=== PATIENT | male | born 1960 | race African-American/Black ===

== ENCOUNTER 2019-02-25 07:11 | Emergency (ER) | payer OTHER ==
[2019-02-25] MEDS ORDERED: HYDROMORPHONE HCL 1 MG/ML INJ ONE (08:05)
--- NOTE | 2019-02-25 08:21 | ER ---
Nurse's Notes [facility] Name: Donato Pascual Age: 58 yrs Sex: Male : 1960 Arrival Date: 02/25/2019 Time: 07:14 Bed 6 Private MD: Raphael Chew E Diagnosis: Unilateral inguinal hernia, without obstruction or gangrene Presentation: 02/25 07:18 Presenting complaint: Patient states: "my hernia came out, I was bending over to put my aa5 shoes on when it came out". Pt c/o pain to hernia. 07:18 Acuity: ROSHAN 3 aa5 07:18 Transition of care: patient was not received from another setting of care. Onset of aa5 symptoms was February 25, 2019. Risk Assessment: Do you want to hurt yourself or someone else? Patient reports no desire to harm self or others. Initial Sepsis Screen: Does the patient meet any 2 criteria? No. Patient's initial sepsis screen is negative. Does the patient have a suspected source of infection? No. Patient's initial sepsis screen is negative. Care prior to arrival: None. 07:18 Method Of Arrival: Ambulatory aa5 Historical: - Allergies: 07:27 NKA; tw2 - Home Meds: 07:27 Albuterol Inhl [Active]; tw2 - PMHx: 07:27 Asthma; enlarged prostate; tw2 - PSHx: 07:27 Hernia repair; tw2 - Immunization history:: Adult Immunizations. - Social history:: Smoking status: . - Ebola Screening: : Patient denies travel to an Ebola-affected area in the 21 days before illness onset. Screenin:27 Abuse screen: Denies threats or abuse. Nutritional screening: No deficits noted. tw2 Tuberculosis screening: No symptoms or risk factors identified. Fall Risk None identified. Assessment: 08:04 General: Appears in no apparent distress. Behavior is calm, cooperative, appropriate tw2 for age. Pain: Complains of pain in abdomen. Neuro: Level of Consciousness is awake, alert, obeys commands, Oriented to person, place, time, situation. Cardiovascular: Heart tones S1 S2 Patient's skin is warm and dry. Respiratory: Airway is patent Respiratory pattern is regular, symmetrical. GI: Reports lower abdominal pain, upper abdominal pain. : No signs and/or symptoms were reported regarding the genitourinary system. EENT: No signs and/or symptoms were reported regarding the EENT system. Derm: No signs and/or symptoms reported regarding the dermatologic system. Musculoskeletal: Range of motion: intact in all extremities. Vital Signs: 07:18 BP 115 / 75; Pulse 67; Resp 16 S; Temp 97.6(O); Pulse Ox 100% on R/A; Weight 90.72 kg aa5 (R); Height 6 ft. 0 in. (182.88 cm) (R); Pain 9/10; 08:27 BP 109 / 70; Pulse 62; Resp 17; Pulse Ox 100% ; Pain 6/10; tw2 07:18 Body Mass Index 27.12 (90.72 kg, 182.88 cm) aa5 ED Course: 07:14 Patient arrived in ED. rg4 07:15 Raphael Chew MD is Private Physician. rg4 07:22 Matthew Meng MD is Attending Physician. gs 07:22 Arm band placed on Patient placed in an exam room, on a stretcher. aa5 07:22 Bed in low position. Call light in reach. tw2 07:26 Meli Monsivais, LU is Primary Nurse. tw2 07:30 Triage completed. aa5 08:19 Salty Lyles MD is Referral Physician. gs 08:26 No provider procedures requiring assistance completed. Patient did not have IV access tw2 during this emergency room visit. Administered Medications: 07:52 Drug: Dilaudid 1 mg Route: IM; Site: right deltoid; tw2 08:27 Follow up: Response: No adverse reaction; Pain is decreased tw2 Outcome: 08:19 Discharge ordered by . gs 08:26 Discharged to home via wheelchair, with significant other. tw2 08:26 Condition: stable 08:26 Discharge instructions given to patient, significant other, Instructed on discharge instructions, follow up and referral plans. no drinking with medication, no driving heavy equipment, medication usage, Demonstrated understanding of instructions, follow-up care, medications, Prescriptions given X 1. 08:27 Patient left the ED. tw2 Signatures: Ruthann Breaux RN RN aa5 Meli Monsivais RN RN tw2 Sridevi Gan 4 Matthew Meng MD MD Corrections: (The following items were deleted from the chart) 08:03 08:02 BP 116 / 82; Pulse 109bpm; Resp 17bpm; Pulse Ox 93% RA; tw2 tw2
--- NOTE | 2019-02-25 08:21 | EDPHYS ---
Physician Documentation [facility] Name: Donato Pascual Age: 58 yrs Sex: Male : 1960 Arrival Date: 02/25/2019 Time: 07:14 Bed 6 Private MD: Raphael Chew E ED Physician Matthew Meng HPI: 02/25 08:14 This 58 yrs old Black Male presents to ER via Ambulatory with complaints of Hernia. gs 08:14 Onset: The symptoms/episode began/occurred this morning. Modifying factors: The gs symptoms are alleviated by nothing. Associated signs and symptoms: Pertinent negatives: abdominal pain, nausea, vomiting. Severity of symptoms: At their worst the symptoms were moderate, in the emergency department the symptoms are unchanged. The patient has experienced a previous episode. The patient has not recently seen a physician. Historical: - Allergies: 07:27 NKA; tw2 - Home Meds: 07:27 Albuterol Inhl [Active]; tw2 - PMHx: 07:27 Asthma; enlarged prostate; tw2 - PSHx: 07:27 Hernia repair; tw2 - Immunization history:: Adult Immunizations. - Social history:: Smoking status: . - Ebola Screening: : Patient denies travel to an Ebola-affected area in the 21 days before illness onset. ROS: 08:14 All other systems are negative. gs Exam: 08:14 Head/Face: Normocephalic, atraumatic. Cardiovascular: Regular rate and rhythm with a gs normal S1 and S2. No gallops, murmurs, or rubs. Normal PMI, no JVD. No pulse deficits. Respiratory: Lungs have equal breath sounds bilaterally, clear to auscultation and percussion. No rales, rhonchi or wheezes noted. No increased work of breathing, no retractions or nasal flaring. Abdomen/GI: Soft, non-tender, with normal bowel sounds. No distension or tympany. No guarding or rebound. No evidence of tenderness throughout. Back: No spinal tenderness. No costovertebral tenderness. Full range of motion. Skin: Warm, dry with normal turgor. Normal color with no rashes, no lesions, and no evidence of cellulitis. MS/ Extremity: Pulses equal, no cyanosis. Neurovascular intact. Full, normal range of motion. Neuro: Awake and alert, GCS 15, oriented to person, place, time, and situation. Cranial nerves II-XII grossly intact. Motor strength 5/5 in all extremities. Sensory grossly intact. Cerebellar exam normal. Normal gait. 08:14 Constitutional: The patient appears alert, awake. 08:14 Constitutional: The patient appears uncomfortable. 08:14 Abdomen/GI: Hernia: noted in the left inguinal area, incarceration, is not appreciated, tenderness, that is mild, able to reduce. Vital Signs: 07:18 BP 115 / 75; Pulse 67; Resp 16 S; Temp 97.6(O); Pulse Ox 100% on R/A; Weight 90.72 kg aa5 (R); Height 6 ft. 0 in. (182.88 cm) (R); Pain 9/10; 08:27 BP 109 / 70; Pulse 62; Resp 17; Pulse Ox 100% ; Pain 6/10; tw2 07:18 Body Mass Index 27.12 (90.72 kg, 182.88 cm) aa5 MDM: 07:46 Patient medically screened. 08:14 Data reviewed: vital signs, nurses notes. Counseling: I had a detailed discussion with the patient and/or guardian regarding: the historical points, exam findings, and any diagnostic results supporting the discharge/admit diagnosis, the need for outpatient follow up. Response to treatment: the patient's symptoms have markedly improved after treatment, the patient's condition has returned to base line. Physician consultation: regarding patient's condition, and will see patient. Administered Medications: 07:52 Drug: Dilaudid 1 mg Route: IM; Site: right deltoid; tw2 08:27 Follow up: Response: No adverse reaction; Pain is decreased tw2 Disposition: 02/25/19 08:19 Discharged to Home. Impression: Unilateral inguinal hernia, without obstruction or gangrene. - Condition is Stable. - Discharge Instructions: Hernia, Adult. - Prescriptions for Tylenol- Codeine #4 300-60 mg Oral Tablet - take 1 tablet by ORAL route every 12 hours As needed; 8 tablet. - Work release form, Medication Reconciliation Form, Thank You Letter, Antibiotic Education, Prescription Opioid Use form. - Follow up: Salty Lyles MD; When: 2 - 3 days; Reason: Re-evaluation by your physician. Signatures: Meli Monsivais RN RN tw2 Matthew Meng MD MD gs Corrections: (The following items were deleted from the chart) 08:27 08:19 02/25/2019 08:19 Discharged to Home. Impression: Unilateral inguinal hernia, tw2 without obstruction or gangrene. Condition is Stable. Forms are Work release form, Medication Reconciliation Form, Thank You Letter, Antibiotic Education, Prescription Opioid Use. Follow up: Salty Lyles; When: 2 - 3 days; Reason: Re-evaluation by your physician. gs
[2019-02-25 08:34] VITALS: TEMP 97.6; O2SAT 100
[2019-02-25 08:36] VITALS: BP 109/70
== END 2019-02-25 08:27 | disposition home or self-care (01) ==
LOC: ER 07:11
DX: K40.90 Unilateral inguinal hernia, without obstruction or gangrene, not specified as recurrent (principal); J45.909 Unspecified asthma, uncomplicated
CPT/HCPCS: 96372; 99283; J1170

== ENCOUNTER 2019-03-23 10:36 | Inpatient (IN) | payer OTHER ==
--- NOTE | 2019-03-23 11:14 | ER ---
Nurse's Notes [facility] Name: Donato Pascual Age: 58 yrs Sex: Male : 1960 Arrival Date: 03/23/2019 Time: 10:38 Bed 8 Private MD: Diagnosis: Inguinal hernia-Left Presentation: 03/23 10:44 Presenting complaint: Recently seen in ED for inguinal hernia, reports testicular hb swelling, worsening pain that radiates to lower abdomen, nausea, and difficulty urinating. Transition of care: patient was not received from another setting of care. Onset of symptoms was March 23, 2019. Risk Assessment: Do you want to hurt yourself or someone else? Patient reports no desire to harm self or others. Initial Sepsis Screen: Does the patient meet any 2 criteria? No. Patient's initial sepsis screen is negative. Does the patient have a suspected source of infection? No. Patient's initial sepsis screen is negative. Care prior to arrival: None. 10:44 Method Of Arrival: Ambulatory hb 10:44 Acuity: ROSHAN 3 hb Historical: - Allergies: 10:46 NKA; hb - Home Meds: 10:46 Albuterol Inhl [Active]; hb - PMHx: 10:46 Asthma; enlarged prostate; hb - PSHx: 10:46 Hernia repair; hb - Immunization history:: Adult Immunizations up to date. - Social history:: Smoking status: Patient/guardian denies using tobacco. - Ebola Screening: : No symptoms or risks identified at this time. Screenin:10 Abuse screen: Denies threats or abuse. Denies injuries from another. Nutritional sg screening: No deficits noted. Tuberculosis screening: No symptoms or risk factors identified. Never had TB. Fall Risk None identified. Assessment: 11:00 General: Appears in no apparent distress. uncomfortable, slender, well groomed, well sg developed, well nourished, Behavior is calm, cooperative, appropriate for age. Pain: Complains of pain in perineum, left femoral area and left inguinal area Quality of pain is described as throbbing. Neuro: Level of Consciousness is awake, alert, obeys commands, Oriented to person, place, time, Accounting Technician are equal bilaterally Moves all extremities. Full function Speech is normal, Facial symmetry appears normal. Cardiovascular: Capillary refill is brisk in bilateral fingers Patient's skin is warm and dry. Chest pain is denied. Respiratory: Airway is patent Respiratory effort is even, unlabored, Respiratory pattern is regular, symmetrical. GI: Abdomen is round non-distended, protruding area from the left inguinal and left femoral area, pt reports is in inguinal hernia Abd is soft and non tender X 4 quads. : Genitalia appear normal. 12:58 Reassessment: Patient appears in no apparent distress at this time. Patient and/or sg family updated on plan of care and expected duration. Pain level reassessed. Patient is alert, oriented x 3, equal unlabored respirations, skin warm/dry/pink. awaiting a bed assignment at this time. 14:12 Reassessment: at bedside with pt at this time, awaiting admission orders, sg will continue to monitor. 14:52 Reassessment: Patient appears in no apparent distress at this time. Patient and/or sg family updated on plan of care and expected duration. Pain level reassessed. Patient is alert, oriented x 3, equal unlabored respirations, skin warm/dry/pink. pt transported to CT at this time, pt left stable condition via wheelchair. Vital Signs: 10:46 BP 123 / 76; Pulse 82; Resp 16; Temp 98.4; Pulse Ox 100% on R/A; Weight 90.72 kg; hb Height 6 ft. 1 in. (185.42 cm); Pain 8/10; 12:00 BP 140 / 88; Pulse 70; Resp 17 S; Pulse Ox 99% on R/A; sg 14:33 BP 143 / 90; Pulse 70; Resp 17; Temp 98.4; Pulse Ox 100% on R/A; sg 16:11 BP 138 / 88; Pulse 72; Resp 17; Temp 98.4; Pulse Ox 100% on R/A; sg 10:46 Body Mass Index 26.39 (90.72 kg, 185.42 cm) hb ED Course: 10:38 Patient arrived in ED. as 10:43 Oscar Welch MD is Attending Physician. kdr 10:46 Triage completed. hb 10:46 Arm band placed on. hb 11:12 Salty Lyles MD is Hospitalizing Provider. kdr 11:39 Kiet Mccormick RN is Primary Nurse. sg 11:39 Urine collected: clean catch specimen, clear, luis m colored. jb1 11:52 T\T\S collected, blood band applied to patient. Inserted saline lock: 20 gauge in right sg forearm, using aseptic technique. Blood collected. 12:20 CXR XRAY In Process Unspecified. EDMS 12:30 Initial lab(s) drawn, by me, sent to lab. sg 15:02 CT completed. Patient tolerated procedure well. Patient moved to CT. Patient moved back dc from CT. 15:02 Abdomen In Process Unspecified. EDMS Administered Medications: No medications were administered Outcome: 11:13 Decision to Hospitalize by Provider. kdr 16:31 Patient left the ED. sg Signatures: Dispatcher [employer] EDMS Bernardo Barker jb1 Kiet Mccormick RN RN Oscar Epps MD MD kdr Martinez, Amelia as Baxter, Heather, RN RN Troy Gates
--- NOTE | 2019-03-23 11:14 | EDPHYS ---
Physician Documentation [facility] Name: Donato Pascual Age: 58 yrs Sex: Male : 1960 Arrival Date: 03/23/2019 Time: 10:38 Bed 8 Private MD: ED Physician Oscar Welch HPI: 03/23 17:41 This 58 yrs old Black Male presents to ER via Ambulatory with complaints of Hernia Pain.kdr 17:41 The patient presents with abdominal pain in the left lower quadrant, Left groin pain - kdr hernia. Onset: The symptoms/episode began/occurred This is long standing problem for which he has been seeing Dr. Lyles for some time. The pain has been persistent for the past week. He had also seen Dr. Lyles recently for the same problem. He states he can't take it any longer and wants it fixed.. 17:48 The symptoms do not radiate. Associated signs and symptoms: none. The symptoms are kdr described as achy, burning, crampy, steady. Modifying factors: The symptoms are alleviated by nothing, the symptoms are aggravated by coughing, breathing deeply, touching the area, walking. Severity of pain: At its worst the pain was mild moderate in the emergency department the pain is unchanged. The patient has experienced similar episodes in the past, chronically. The patient has been recently seen by a physician:. Historical: - Allergies: 10:46 NKA; hb - Home Meds: 10:46 Albuterol Inhl [Active]; hb - PMHx: 10:46 Asthma; enlarged prostate; hb - PSHx: 10:46 Hernia repair; hb - Immunization history:: Adult Immunizations up to date. - Social history:: Smoking status: Patient/guardian denies using tobacco. - Ebola Screening: : No symptoms or risks identified at this time. ROS: 17:48 Constitutional: Negative for fever, chills, and weight loss, Eyes: Negative for injury, kdr pain, redness, and discharge, ENT: Negative for injury, pain, and discharge, Neck: Negative for injury, pain, and swelling, Cardiovascular: Negative for chest pain, palpitations, and edema, Respiratory: Negative for shortness of breath, cough, wheezing, and pleuritic chest pain, Abdomen/GI: Negative for abdominal pain, nausea, vomiting, diarrhea, and constipation, Back: Negative for injury and pain, MS/Extremity: Negative for injury and deformity, Skin: Negative for injury, rash, and discoloration, Neuro: Negative for headache, weakness, numbness, tingling, and seizure activity. Psych: Negative for depression, anxiety, suicide ideation, homicidal ideation, and hallucinations, Allergy/Immunology: Negative for hives, rash, and allergies, Endocrine: Negative for neck swelling, polydipsia, polyuria, polyphagia, and marked weight changes, Hematologic/Lymphatic: Negative for swollen nodes, abnormal bleeding, and unusual bruising. 17:48 : Positive for Left groin pain and swelling. Exam: 17:48 Constitutional: This is a well developed, well nourished patient who is awake, alert, kdr and in no acute distress. Head/Face: Normocephalic, atraumatic. Neck: Trachea midline, no thyromegaly or masses palpated, and no cervical lymphadenopathy. Supple, full range of motion without nuchal rigidity, or vertebral point tenderness. No Meningismus. Chest/axilla: Normal chest wall appearance and motion. Nontender with no deformity. No lesions are appreciated. Cardiovascular: Regular rate and rhythm with a normal S1 and S2. No gallops, murmurs, or rubs. Normal PMI, no JVD. No pulse deficits. Respiratory: Lungs have equal breath sounds bilaterally, clear to auscultation and percussion. No rales, rhonchi or wheezes noted. No increased work of breathing, no retractions or nasal flaring. Abdomen/GI: Soft, non-tender, with normal bowel sounds. No distension or tympany. No guarding or rebound. No evidence of tenderness throughout. Back: No spinal tenderness. No costovertebral tenderness. Full range of motion. Skin: Warm, dry with normal turgor. Normal color with no rashes, no lesions, and no evidence of cellulitis. MS/ Extremity: Pulses equal, no cyanosis. Neurovascular intact. Full, normal range of motion. Neuro: Awake and alert, GCS 15, oriented to person, place, time, and situation. Cranial nerves II-XII grossly intact. Motor strength 5/5 in all extremities. Sensory grossly intact. Cerebellar exam normal. Normal gait. Psych: Awake, alert, with orientation to person, place and time. Behavior, mood, and affect are within normal limits. 17:48 Abdomen/GI: Inspection: abdomen appears normal, There is a large swelling to the left groin, Bowel sounds: active, all quadrants, diminished, Palpation: moderate abdominal tenderness, Left groin especially with palpation and attempt to reduce the hernia even while in Trendelenburg . Vital Signs: 10:46 BP 123 / 76; Pulse 82; Resp 16; Temp 98.4; Pulse Ox 100% on R/A; Weight 90.72 kg; hb Height 6 ft. 1 in. (185.42 cm); Pain 8/10; 12:00 BP 140 / 88; Pulse 70; Resp 17 S; Pulse Ox 99% on R/A; sg 14:33 BP 143 / 90; Pulse 70; Resp 17; Temp 98.4; Pulse Ox 100% on R/A; sg 16:11 BP 138 / 88; Pulse 72; Resp 17; Temp 98.4; Pulse Ox 100% on R/A; sg 10:46 Body Mass Index 26.39 (90.72 kg, 185.42 cm) hb MDM: 11:13 Patient medically screened. kdr 17:48 Data reviewed: vital signs, nurses notes, lab test result(s). Counseling: I had a kdr detailed discussion with the patient and/or guardian regarding: the historical points, exam findings, and any diagnostic results supporting the discharge/admit diagnosis, lab results, the need for outpatient follow up. 03/23 11:40 Order name: Urine Dipstick--Ancillary (enter results); Complete Time: 12:09 bd 03/23 12:09 Order name: CBC with Diff kdr 03/23 12:09 Order name: Chem 7 kdr 03/23 12:09 Order name: Type And Screen kdr 03/23 14:14 Order name: Basic Metabolic Panel EDMS 03/23 14:14 Order name: Basic Metabolic Panel EDMS 03/23 12:09 Order name: CXR XRAY kdr 03/23 14:14 Order name: CBC with Automated Diff EDMS 03/23 14:14 Order name: CBC with Automated Diff EDMS 03/23 14:14 Order name: Lipase EDMS 03/23 14:14 Order name: Lipase EDMS 03/23 14:14 Order name: Liver (Hepatic) Function EDMS 03/23 14:14 Order name: Liver (Hepatic) Function EDMS 03/23 12:09 Order name: EKG Strip; Complete Time: 15:00 [facility] 03/23 12:09 Order name: Urine Dipstick-Ancillary (obtain specimen); Complete Time: 15:00 [facility] 03/23 14:14 Order name: NPO EDDC 03/23 14:18 Order name: Abdomen EDDC Administered Medications: No medications were administered Disposition: 03/23/19 11:13 Hospitalization ordered by Salty Lyles for Observation. Preliminary diagnosis is Inguinal hernia - Left. - Bed requested for Telemetry/MedSurg (observation). - Status is Observation. sg - Condition is Fair. - Problem is an ongoing problem. - Symptoms are unchanged. UTI on Admission? No Signatures: Dispatcher [employer] EDDC Laila Graves bd Kiet Mccormick, RN RN sg Oscar Welch MD MD [facility] Carmen Diana RN RN Corrections: (The following items were deleted from the chart) 14:18 13:14 Abdomen Pelvis W Con+CT.RAD.BRZ ordered. [facility] 14:42 11:13 Hospitalization Ordered by Salty Lyles MD for Observation. Preliminary bd diagnosis is Inguinal hernia - Left. Bed requested for Telemetry/MedSurg (observation). Status is Observation. Condition is Fair. Problem is an ongoing problem. Symptoms are unchanged. UTI on Admission? No. kdr 16:31 14:42 03/23/2019 11:13 Hospitalization Ordered by Salty Lyles MD for Observation. sg Preliminary diagnosis is Inguinal hernia - Left. Bed requested for Telemetry/MedSurg (observation). Status is Observation. Condition is Fair. Problem is an ongoing problem. Symptoms are unchanged. UTI on Admission? No. bd 17:50 17:41 Onset: The symptoms/episode began/occurred This is long standing problem for [facility] which he has been seeing Dr. Lyles for some time. The pain has been persistent f, kdr
[2019-03-23 11:47] LABS: Urine Blood NEGATIVE (NEG); Urine Glucose NEGATIVE (NEG); Urine Protein NEGATIVE (NEG)
--- NOTE | 2019-03-23 12:35 | RAD REPORT ---
EXAM DESCRIPTION: Keyla Single View03/23/2019 12:28 pm CLINICAL HISTORY: Abdominal pain COMPARISON: none FINDINGS: Area of scarring or subsegmental atelectasis is present within the right lung base. Remainder lungs appear clear of acute infiltrate. The heart is normal size
[2019-03-23 13:13] LABS: Absolute Lymphocytes (CBC) 1.6 K/uL (0.7-4.9); Basophils % 1.1 % (0-1.3); Hematocrit 39.7 % (39.6-49.0); Lymphocytes % 39.5 % (15.3-44.8); MPV 7.5 fL (7.6-11.3); RBC Red Blood Cell Count 3.95 M/uL (4.33-5.43)
[2019-03-23 13:24] LABS: BUN Blood Urea Nitrogen 9 mg/dL (7-18); Bicarbonate 27 mmol/L (21-32); Glucose Level 73 mg/dL (74-106); Potassium 3.3 mmol/L (3.5-5.1); Sodium Level 139 mmol/L (136-145)
[2019-03-23] MEDS ORDERED: ONDANSETRON 4 MG/2 ML VIAL IV PRN (14:08)
[2019-03-23] MEDS ORDERED: ACETAMINOPHEN 500 MG TAB PO PRN (14:08)
[2019-03-23] MEDS: D5 0.45 NS 1,000 ML IV SCH ×2 (15:00→17:22)
--- NOTE | 2019-03-23 15:32 | RAD REPORT ---
EXAM DESCRIPTION: CT - Abdomen Pelvis Wo Contrast - 03/23/2019 3:02 pm CLINICAL HISTORY: Abdominal pain COMPARISON: 2016 TECHNIQUE: Computed axial tomography of the abdomen and pelvis was obtained. IV was not requested. O ral contrast was given. Coronal reconstructions performed. All CT scans are performed using dose optimization technique as appropriate and may include automated exposure control or mA/KV adjustment according to patient size. FINDINGS: The evaluation of solid organs and vessels is limited secondary to the lack of contrast a dministration. The liver, spleen, pancreas, adrenals and kidneys appear grossly normal. The appendix is normal. A large left inguinal hernia contains colon. The wall of the sigmoid colon is thickened. A portion of the thickened wall is present within the left inguinal hernia. Postsurgical changes of a right inguinal hernia repair are present. The prostate gland is moderately enlarged. It abuts the base of the bladder. . Mottled appearance to the bones is without significant change IMPRESSION: Large left inguinal hernia containing colon Moderate thickening of the wall of the sigmoid colon may indicate a colitis Prostatic tissue abuts the base of the prostate gland which may represent prostatic hypertrophy or ne oplasm
[2019-03-23 17:56] VITALS: BMI 24.5
[2019-03-23] MEDS: MORPHINE 2 MG/ML SYR IV PRN ×2 (18:35→21:19)
[2019-03-23] MEDS ORDERED: MAGNESIUM CITRATE 300 ML BOT PO SCH (21:00)
[2019-03-24] MEDS: D5 0.45 NS 1,000 ML IV SCH ×4 (01:00→20:49)
[2019-03-24 04:32] LABS: Absolute Lymphocytes (CBC) 1.5 K/uL (0.7-4.9); Basophils % 0.7 % (0-1.3); Hematocrit 37.1 % (39.6-49.0); Lymphocytes % 28.7 % (15.3-44.8); MPV 6.9 fL (7.6-11.3); RBC Red Blood Cell Count 3.68 M/uL (4.33-5.43)
[2019-03-24 04:45] LABS: ALT/SGPT 18 U/L (12-78); AST/SGOT 13 U/L (15-37); Alkaline Phosphatase 63 U/L (45-117); BUN Blood Urea Nitrogen 6 mg/dL (7-18); Bicarbonate 29 mmol/L (21-32); Bilirubin Direct 0.1 mg/dL (0-0.2); Bilirubin Total 0.6 mg/dL (0.2-1.0); Glucose Level 98 mg/dL (74-106); Lipase 379 U/L (73-393); Potassium 3.4 mmol/L (3.5-5.1); Protein, Total 6.1 g/dL (6.4-8.2); Sodium Level 143 mmol/L (136-145)
[2019-03-24] MEDS ORDERED: Ringers Lactate 1,000 ML IV ONE ×2 (11:36→14:01)
--- NOTE | 2019-03-24 11:38 | EKG ---
Test Date: 2019-03-23 Test Time: 11:59:19 Wellness Program Administrator: ROSS MEASUREMENT RESULTS: Intervals: Rate: 71 OK: 204 QRSD: 88 QT: 372 QTc: 404 [place]: P: 47 OK: 204 QRS: 40 T: 25 INTERPRETIVE STATEMENTS: Sinus rhythm with premature supraventricular complexes Otherwise normal ECG No previous ECG available for comparison Electronically Signed On 03-24-19 11:35:04 CDT by Fran Bland
[2019-03-24] MEDS ORDERED: CEFAZOLIN/SWI 1gm 1 GM/10 ML SYR ONE (12:16)
[2019-03-24] MEDS ORDERED: FENTANYL CITR 100 MCG/2 ML ONE (12:18)
[2019-03-24] MEDS ORDERED: PROPOFOL 200 MG/20 ML VIAL IV ONE (12:18)
[2019-03-24] MEDS ORDERED: LIDOCAINE 1% MPF 5 ML VIAL ONE (12:18)
[2019-03-24] MEDS ORDERED: MIDAZOLAM HCL 2 MG/2 ML INJ ONE (12:18)
--- NOTE | 2019-03-24 12:24 | P.HP ---
Date of Service: 03/24/19 PC: This 58-year-old male presents emergency room with severe left groin pain for diagnosis and treatment. HPC: Patient has had a known left inguinal hernia. He is been in the process of getting this fixed over the last year. However the hernia has come down wall not call back causing increasing pain and discomfort. He states he can barely walk. PMH: History of asthma, prostatic enlargement PSHx: Previous right inguinal hernia done laparoscopic low SOC: No known allergy SYS REVIEW: No cough, wheeze, shortness of breath. No chest pain or palpitations. States he is not been having any recent urinary discomfort or problems. Normal bowel movements. Recent colonoscopy was negative. O/E awake alert vital signs are stable, mildly uncomfortable HEENT: Within normal limit Chest: Air entry equal bilaterally ABD: Soft nontender no guarding or rebound. Does have a left inguinal hernia. Tender to the touch but is almost fully reducible reducible however it does pop right back out again. LOCO: Intact DATA: CT scan demonstrates left inguinal hernia with mild limp on the IMPRESSION: Left inguinal hernia, incarcerated PLAN: I will take him to the operating room for an open laparoscopic left inguinal hernia repair with mesh. The risks of this procedure have been discussed. The possibility of bleeding, infection, injury to bowel and blood vessels has been described. This is be a sliding hernia, and 1 we were fixing his right side we saw on the extent of the 1 on the left. There are marked amount of adhesions in the area and I feel it would be technically ill-advised to do a John or Tepp on him. I have explained this to him and his . The risks of recurrence, mesh migration and complications were explained. They understand and want to proceed. We have also discussed the findings of his lumbar vertebrae ran the fact that that will need to be further investigated. He understands.
--- NOTE | 2019-03-24 12:29 | P.PN ---
Date of Service: 03/24/19 S: Patient feels somewhat better today, hernia is still out but soft, nontender today O: Left inguinal hernia that is partially reducible A: Surgically stable P : Patient received his magnesium citrate last night. He is been given pain medicine. He is much more comfortable today. We will take him to the operating room to repair this hernia. Once again the procedure and risks discussed.
[2019-03-24] MEDS ORDERED: KETOROLAC 30 MG/ML INJ ONE (13:28)
[2019-03-24] MEDS ORDERED: ONDANSETRON 4 MG/2 ML VIAL ONE (13:46)
--- NOTE | 2019-03-24 14:01 | P.OP ---
Preoperative diagnosis: Incarcerated left inguinal hernia Postoperative diagnosis: The same (sliding left indirect inguinal hernia) Primary procedure: Reduction of left inguinal hernia Other procedure(s): Open right hernia repair with mesh Operative Technique: The patient brought to the operating room and placed supine on the table the induction of adequate general endotracheal anesthesia, the area of the abdomen was prepped with a DuraPrep solution after the insertion of a Hollins catheter. The area was then draped in usual aseptic manner. A left lower quadrant skin incision was made. This brought down through the skin and subcutaneous tissue. Gonzalo's fascia was opened. The external oblique muscle was identified. Opening the direction of the fibers were able expose the spermatic cord. This was dissected up and out and the inguinal canal was open. We could see at the internal ring there was a large blowout with a significant sliding hernia. The hernia sac was identified. It did descend down into the actual scrotum. This was then dissected off the spermatic cord back up to this area area was then reduced EN Vega. A large plug was then placed this area and held in place with Prolene sutures. The mesh was now sutured to the inferior reflected edge of the and inguinal ligament. Superiorly the mesh was fixed using the Pro Tacker. The external oblique was then approximated using a running suture of Vicryl. The subcutaneous tissue was approximated with the same. [place] were then applied to the skin. At the end of the procedure he was in a stable condition when sent to the recovery room. Needle sponge instrument count were correct. No drains were placed. Complications: None Transferred to: Recovery Room Condition: Good
[2019-03-24] MEDS: HYDROMORPHONE HCL 1 MG/ML INJ ONE ×2 (14:06→14:17)
[2019-03-24 14:43] VITALS: O2SAT 98
[2019-03-24] MEDS: MORPHINE 4 MG/ML SYR IV PRN ×3 (15:34→21:06)
[2019-03-24] MEDS ORDERED: MORPHINE 4 MG/ML SYR IV SCH (16:00)
[2019-03-24] MEDS: HYDROCODONE/APAP 7.5/325 MG TAB PO PRN ×2 (19:34→23:24)
[2019-03-25] MEDS: MORPHINE 4 MG/ML SYR IV PRN ×2 (00:33→02:15)
[2019-03-25] MEDS: HYDROCODONE/APAP 7.5/325 MG TAB PO PRN ×2 (03:27→09:15)
[2019-03-25] MEDS: D5 0.45 NS 1,000 ML IV SCH (05:26)
[2019-03-25 09:47] VITALS: BP 103/56; TEMP 98.2
== END 2019-03-25 10:45 | disposition home or self-care (01) | DRG 352 ==
LOC: SUPCPDRO 10:36 → ER 10:36 → 4TH 14:00 → INTOOBSV 14:00 → OBSVTOIN 03-25 09:42
PROVIDERS: ADMIT Surgery; ATTEND Surgery
PROC: 0YU60JZ Supplement Left Inguinal Region with Synthetic Substitute, Open Approach (ICD-10-PCS; principal; 2019-03-24 12:30)
DX: K40.30 Unilateral inguinal hernia, with obstruction, without gangrene, not specified as recurrent (principal)
CPT/HCPCS: 36415; 71045; 74176; 80048; 80076; 81003; 83690; 85025; 86850; 86900; 86901; 93005; 99284; G0378; J0690; J1170; J2250; J2270; J2405; J2704; J3010

== ENCOUNTER 2023-02-20 19:38 | Emergency (ER) | payer OTHER ==
--- OUTSIDE RECORDS SUMMARY | 2023-02-20 19:43 | XMS REPORT | Continuity of Care Document ---
:1960 Author Organization [facility] t Address [address] [facility] [address] [place] [address] Care Team Providers Name Role Phone Renu James MD Primary Care Physician CHARLES MAN Attending Clinician Unavailable TORI PARADA Attending Clinician Unavailable Renu James MD Attending Clinician TAE GUO Attending Clinician Unavailable Tae Guo DO Attending Clinician Cee Corrales Attending Clinician Abilio Arauz Attending Clinician YULY CARPIO Attending Clinician Unavailable Yluy Deluna Attending Clinician Doctor Unassigned, [place] Attending Clinician Unavailable Jem Hewitt Attending Clinician VISIT, MED_ASST UAHT Attending Clinician Unavailable Babs Ferreira Attending Clinician Kenyatta Kilgore Attending Clinician SINGH MEDINA Attending Clinician Unavailable Singh Medina Attending Clinician NIESL OBRIEN Attending Clinician Unavailable Moncho Lee PTMiri Attending Clinician Unavailable Niels Obrien MD Attending Clinician Danita Fagan PT Attending Clinician Unavailable Gaetano Nunez PTA Attending Clinician Unavailable Pob, [facility] Attending Clinician Unavailable Charles Man MD Attending Clinician Dulce Maria Nunez PTA Attending Clinician Unavailable BRADY MORRIS Attending Clinician Unavailable AttBrady garcia MD Attending Clinician Jose Potts CRNA Attending Clinician Blas Briceño MD Attending Clinician [phone] Jem Hewitt Attending Clinician CHARLES MAN Admitting Clinician Unavailable TAE GUO Admitting Clinician Unavailable ATTBRADY GARCIA Admitting Clinician Unavailable Charles Man MD Admitting Clinician [phone] Payers Payer Name Policy Type Policy Number Effective Date Expiration Date S oliver MEDICARE PART A [id number] 2017 \\T\\ B 00:00:00 FORMERLY [facility] [id number] 2017 PLUS 00:00:00 MEDICARE PART A [id number] 2017 AND B 00:00:00 Problems Condition Condition Condition Status Onset Resolution Last Treating Co mments Source Name Details Category Date Date Treatment Clinician Date R10.32/R19 Diagnosis Active 2021-02-19 Memoria .7/Z86.010 R10.32/R19 7-08 12:32:00 l .7/Z86.010 00:00: Ricardo n Active 00 02/14/2021 [facility] LEFT GROIN LEFT Diagnosis Active 2021-02-23 Memoria PAIN GROIN PAIN 6-12 15:10:00 l Active 00:00: Humza 01/19/2021 00 [facility] Post-op Post-op Disease Active Univers pain pain 3-04 ity of 00:00: [address] Obesity Obesity Disease Active Univers (BMI (BMI 3-04 ity of 30-39.9) 30-39.9) 00:00: [address] Unilateral Unilatera Problem 2021-02-21 Memoria inguinal l inguinal 23:46:27 l hernia, hernia, [place] without without obstructio obstructio n or n or gangrene, gangrene, not not specified specified as as recurrent recurrent 02/21/2021 [facility] Encounter Encounter Problem 2021-02-21 Memoria for for 23:46:27 l screening screening Herm susanna for for malignant malignant neoplasm neoplasm of colon of colon 02/21/2021 [facility] LEFT LOWER LEFT Diagnosis Active 2021-02-19 Memoria QUADRANT LOWER 12:32:00 l PAIN QUADRANT Humza PAIN Active [facility] DIARRHEA, Diagnosis Active 2021-02-19 Memoria UNSPECIFIE DIARRHEA, 12:32:00 l D UNSPECIFIE Ricardo n D Active [facility] PERSONAL PERSONAL Diagnosis Active 2021-02-19 Memoria HISTORY OF HISTORY OF 12:32:00 l COLONIC COLONIC Humza POLYPS POLYPS Active [facility] UNIL UNIL Diagnosis Active 2021-02-19 Mem oria INGUINAL INGUINAL 12:17:00 l HERNIA, HERNIA, Humza W/O OBST W/O OBST OR GANGR, OR GANGR, Active [facility] ENCOUNTER ENCOUNTER Diagnosis Active 2021-02-19 Memoria FOR FOR 12:17:00 l SCREENING SCREENING Herm susanna FOR FOR MALIGNANT MALIGNANT NE NE Active [facility] R10.2 - R10.2 - Diagnosis Active 2021-09-04 Memoria PELVIC AND PELVIC AND 08:51:00 l PERINEAL PERINEAL Ricardo n PAIN PAIN Active [facility]ipp[facility] History of Past Illness Condition Condition Condition Status Onset Resolution Last Treating Co mments Source Name Details Category Date Date Treatment Clinician Date Other Other Problem 2022-04-06 2022-04-06 M emoria specified specified 04-03 02:30:33 02:30:33 l disorders disorders 21:35: Herm susanna of bone, of bone, 00 other site other site 04/03/2022 04/06/[facility] Bilateral Bilateral Problem 2022-04-06 2022-04-06 Memoria inguinal inguinal 04-03 02:30:33 02:30:33 l hernia, hernia, 21:34: Humza without without 00 obstructio obstructio n or n or gangrene, gangrene, recurrent recurrent 04/03/2022 [facility] Enlarged Enlarged Problem 2022-04-06 2022-04-06 Memoria prostate prostate 8- 02:30:33 02:30:33 l without without 21:34: Graham lower lower 00 urinary urinary tract tract symptoms symptoms 04/03/2022 04/06/2022 [facility] Nodular Nodular Problem 2021-10-31 2021-10-31 Memoria prostate prostate 3-21 00:16:13 00:16:13 l with lower with lower 21:15: He rmann urinary urinary 00 tract tract symptoms symptoms 10/28/2021 10/31/2021 [facility] Pelvic and Pelvic Problem 2021-08-18 2021-08-18 Memoria perineal and 1-06 01:40:48 01:40:48 l pain perineal 21:06: [facility] pain 00 08/15/2021 08/18/2021 [facility] Allergies, Adverse Reactions, Alerts Allergy Allergy Status Severity Reaction(s) Onset Inactive Treating Comm ents Source Name Type Date Date Clinician NO KNOWN Drug Active Univers ALLERGIE Class ity of S [facility] No Known No Known Active Memori a Medicati Medicati l on on [place] Allergie Allergie s s Social History Social Habit Start Date Stop Date Quantity Comments Source History SDDE University o f Alcohol Frequency [facility] edical Branch History [facility] Union o f Alcohol Std Drinks [facility] History [facility] University o f Alcohol Binge [facility] al Branch Gender identity Universit y of [facility] Sexual orientation Univer sity of [facility] Alcohol intake 2023-01-01 2023-01-01 Current drinker Unive rsity of 00:00:00 00:00:00 of alcohol [facility]ly [facility] (finding) Branch Exposure to 2022-05-09 2022-05-19 Not sure University of SARS-CoV-2 (event) 00:00:00 10:30:00 [facility] Tobacco use and 2022-04-21 2022-04-21 Smokeless tobacco Un iversity of exposure 00:00:00 00:00:00 non-user [facility] History of Social 2022-04-15 2022-04-15 Univers ity of function 00:00:00 00:00:00 [facility] Alcohol Comment 2017-01-22 2017-01-22 Occasional Universit y of 00:00:00 00:00:00 [facility] [place] [facility] Sex [birth year] At [birth year] Universit y of 00:00:00 00:00:00 [facility] Smoking Status Start Date Stop Date Source Tobacco smoking status [facility] Medications Ordered Filled Start Stop Current Ordering Indication Dosage Frequency Signature Comments Components Source Medication Medication Date Date Medication? Clinician (SIG) Name Name iopamidol 3- No [id number] 100mL 100 mL, Univers (ISOVUE 24 05-24 Intravenou ity o f 370-500 mL) 21:00: 21:00 s, ONCE, 1 [place] injection 00 :00 dose, On Medica l 100 mL Wed Branch 12/31/22 at 1600, Routine naproxen 2022-0 Yes [id number] 550mg Take 1 Un kathy sodium 5-24 tablet by ity of (ANAPROX 00:00: mouth in [place] [facility]) 550 mg 00 the Medical tablet morning Branch and 1 tablet in the evening. Take with meals. naproxen 2022-0 Yes [id number] 550mg Take 1 Un kathy sodium 5-24 tablet by ity of (ANAPROX 00:00: mouth in [place] [facility]) 550 mg 00 the Medical tablet morning Branch and 1 tablet in the evening. Take with meals. acetaminoph 2021-0 Yes Take by Uni vers en with 9-06 mouth. ity of codeine 09:13: [place] (TYLENOL-CO 40 Medical DEINE #3 Branch ORAL) acetaminoph 2021-0 Yes Take by Uni vers en with 9-06 mouth. ity of codeine 09:13: [place] (TYLENOL-CO 40 Medical DEINE #3 Branch ORAL) acetaminoph 2021-0 Yes Take by Uni vers en with 9-06 mouth. ity of codeine 09:13: [place] (TYLENOL-CO 40 Medical DEINE #3 Branch ORAL) acetaminoph 2021-0 Yes Take by Uni vers en with 9-06 mouth. ity of codeine 09:13: [place] (TYLENOL-CO 40 Medical DEINE #3 Branch ORAL) acetaminoph 2021-0 Yes Take by Uni vers en with 9-06 mouth. ity of codeine 09:13: [place] (TYLENOL-CO 40 Medical DEINE #3 Branch ORAL) acetaminoph 2021-0 Yes Take by Uni vers en with 9-06 mouth. ity of codeine 09:13: [place] (TYLENOL-CO 40 Medical DEINE #3 Branch ORAL) tamsulosin 2021-0 Yes Take by Univ ers 0.4 mg 24 9-06 mouth ity of hr capsule 09:13: daily. [place] [address] Medical Branch tamsulosin 2-0 Yes Take by Univ ers 0.4 mg 24 9-06 mouth ity of hr capsule 09:13: daily. [place] [address] Medical Branch tamsulosin 2021-0 Yes Take by Univ ers 0.4 mg 24 9-06 mouth ity of hr capsule 09:13: daily. [place] [address] Medical Branch tamsulosin 2021-0 Yes Take by Univ ers 0.4 mg 24 9-06 mouth ity of hr capsule 09:13: daily. [place] [address] Medical Branch tamsulosin 2021-0 Yes Take by Univ ers 0.4 mg 24 9-06 mouth ity of hr capsule 09:13: daily. [place] [address] Medical Branch tamsulosin 2021-0 Yes Take by Univ ers 0.4 mg 24 9-06 mouth ity of hr capsule 09:13: daily. [place] [address] Medical Branch Diclofenac 2022-0 Yes [id number] Apply to Univers Sodium 9-06 area(s) 2 ity of (VOLTAREN) 00:00: (two) [place] 1 % gel 00 times Medical daily as Branch needed for Pain (scale 4-6). Apply 0.5 Diclofenac 2022-0 Yes [id number] Apply to Univers Sodium 9-06 area(s) 2 ity of (VOLTAREN) 00:00: (two) [place] 1 % gel 00 times Medical daily as Branch needed for Pain (scale 4-6). Apply 0.5 Diclofenac 2022-0 Yes [id number] Apply to Univers Sodium 9-06 area(s) 2 ity of (VOLTAREN) 00:00: (two) [place] 1 % gel 00 times Medical daily as Branch needed for Pain (scale 4-6). Apply 0.5 Diclofenac 2022-0 Yes [id number] Apply to Univers Sodium 9-06 area(s) 2 ity of (VOLTAREN) 00:00: (two) [place] 1 % gel 00 times Medical daily as Branch needed for Pain (scale 4-6). Apply 0.5 Diclofenac 2022-0 Yes [id number] Apply to Univers Sodium 9-06 area(s) 2 ity of (VOLTAREN) 00:00: (two) [place] 1 % gel 00 times Medical daily as Branch needed for Pain (scale 4-6). Apply 0.5 Diclofenac 0 Yes [id number] Apply to Univers Sodium 9-06 area(s) 2 ity of (VOLTAREN) 00:00: (two) [place] 1 % gel 00 times Medical daily as Branch needed for Pain (scale 4-6). Apply 0.5 tamsulosin Yes = 1 cap, Mem oria 0.4 mg oral 8-25 PO, Daily, l capsule 21:43: # 90 cap, Verito nn 00 0 Refill(s), Pharmacy: [facility] #[id number], 185.42, cm, 04/03/22 15:53:00 CDT, Height, 102.273, kg, 04/03/22 15:53:00 CDT, Weight tamsulosin 0 Yes = 1 cap, Mem oria 0.4 mg oral 8-25 PO, Daily, l capsule 21:43: # 90 cap, Verito nn 00 0 Refill(s), Pharmacy: [facility] #[id number], 185.42, cm, 04/03/22 15:53:00 CDT, Height, 102.273, kg, 04/03/22 15:53:00 CDT, Weight tamsulosin 0 Yes = 1 cap, Mem oria 0.4 mg oral 8-25 PO, Daily, l capsule 21:43: # 90 cap, Verito nn 00 0 Refill(s), Pharmacy: [facility] #[id number], 185.42, cm, 04/03/22 15:53:00 CDT, Height, 102.273, kg, 04/03/22 15:53:00 CDT, Weight acetaminoph 0 Yes 1 tab, PO, Memoria en-codeine 8-25 BID, X 30 l 300 mg-30 21:42: day, # 60 Her watson mg oral 00 tab, 0 tablet Refill(s), Pharmacy: [facility] #[id number], 185.42, cm, 04/03/22 15:53:00 CDT, Height, 102.273, kg, 04/03/22 15:53:00 CDT, Weight acetaminoph 2021-0 Yes 1 tab, PO, Memoria en-codeine 8-25 BID, X 30 l 300 mg-30 21:42: day, # 60 Her watson mg oral 00 tab, 0 tablet Refill(s), Pharmacy: [email or web address] #[id number], 185.42, cm, 04/03/22 15:53:00 CDT, Height, 102.273, kg, 04/03/22 15:53:00 CDT, Weight acetaminoph 2021-0 Yes 1 tab, PO, Memoria en-codeine 8-25 BID, X 30 l 300 mg-30 21:42: day, # 60 Her watson mg oral 00 tab, 0 tablet Refill(s), Pharmacy: [email or web address] #[id number], 185.42, cm, 04/03/22 15:53:00 CDT, Height, 102.273, kg, 04/03/22 15:53:00 CDT, Weight acetaminoph 2021-0 No 60 ea, Inder nixon en-codeine 8-25 TAKE 1 TO l 300 mg-30 20:53: 2 TABLETS Her watson mg oral 00 BY MOUTH tablet DAILY NEEDED FOR PAIN, 0 Refill(s) acetaminoph 2021-0 No 60 ea, Inder nixon en-codeine 8-25 TAKE 1 TO l 300 mg-30 20:53: 2 TABLETS Her watson mg oral 00 BY MOUTH tablet DAILY NEEDED FOR PAIN, 0 Refill(s) acetaminoph 2021-0 No 60 ea, Inder nixon en-codeine 8-25 TAKE 1 TO l 300 mg-30 20:53: 2 TABLETS Her watson mg oral 00 BY MOUTH tablet DAILY NEEDED FOR PAIN, 0 Refill(s) Bactrim DS 2021-0 Yes 1 tab, PO, M emoria 800 mg- 160 4-20 BID, X 7 l mg oral 16:02: day, # 14 Verito nn tablet 00 tab, 0 Refill(s), Pharmacy: [email or web address] #[id number], 210.82, cm, 10/28/21 16:00:00 CDT, Height, 103.75, kg, 10/28/21 16:00:00 CDT, Weight Flomax 0.4 2-0 Yes 0.4 mg = 1 M emoria mg oral 4-20 cap, PO, l capsule 16:02: Daily, # Ricardo n 00 30 cap, 11 Refill(s), Pharmacy: [email or web address] #[id number], 210.82, cm, 10/28/21 16:00:00 CDT, Height, 103.75, kg, 10/28/21 16:00:00 CDT, Weight Bactrim DS 2-0 Yes 1 tab, PO, M emoria 800 mg- 160 4-20 BID, X 7 l mg oral 16:02: day, # 14 Verito nn tablet 00 tab, 0 Refill(s), Pharmacy: [email or web address] #[id number], 210.82, cm, 10/28/21 16:00:00 CDT, Height, 103.75, kg, 10/28/21 16:00:00 CDT, Weight Flomax 0.4 2021-0 Yes 0.4 mg = 1 M emoria mg oral 4-20 cap, PO, l capsule 16:02: Daily, # Ricardo n 00 30 cap, 11 Refill(s), Pharmacy: [email or web address] #[id number], 210.82, cm, 10/28/21 16:00:00 CDT, Height, 103.75, kg, 10/28/21 16:00:00 CDT, Weight Bactrim DS 2-0 Yes 1 tab, PO, M emoria 800 mg- 160 4-20 BID, X 7 l mg oral 16:02: day, # 14 Verito nn tablet 00 tab, 0 Refill(s), Pharmacy: [email or web address] #[id number], 210.82, cm, 10/28/21 16:00:00 CDT, Height, 103.75, kg, 10/28/21 16:00:00 CDT, Weight Flomax 0.4 2021-0 Yes 0.4 mg = 1 M emoria mg oral 4-20 cap, PO, l capsule 16:02: Daily, # Ricardo n 00 30 cap, 11 Refill(s), Pharmacy: [email or web address] #[id number], 210.82, cm, 10/28/21 16:00:00 CDT, Height, 103.75, kg, 10/28/21 16:00:00 CDT, Weight cholestyram 2021-0 Yes 4 gm, PO, M emoria ine 4 g/5.7 3-21 BID, 0 l g oral 21:30: Refill(s) Ricardo n powder for 00 reconstitut ion cholestyram 2-0 Yes 4 gm, PO, M emoria ine 4 g/5.7 3-21 BID, 0 l g oral 21:30: Refill(s) Ricardo n powder for 00 reconstitut ion cholestyram 2-0 Yes 4 gm, PO, M emoria ine 4 g/5.7 3-21 BID, 0 l g oral 21:30: Refill(s) Ricardo n powder for 00 reconstitut ion Acetaminoph 2-0 Yes 1 - 2 Memor ia en 300 MG / 3-21 tablets, l Codeine 21:28: PO, Daily, Herm susanna Phosphate 00 PRN Pain, 30 MG Oral X 30 day, Tablet # 60 tab, [Tylenol 0 with Refill(s), Codeine #3] [id number], 210.82, cm, 10/28/21 16:00:00 CDT, Height, 103.75, kg, 10/28/21 16:00:00 CDT, Weight Acetaminoph 2021-0 Yes 1 - 2 Memor ia en 300 MG / 3-21 tablets, l Codeine 21:28: PO, Daily, Herm susanna Phosphate 00 PRN Pain, 30 MG Oral X 30 day, Tablet # 60 tab, [Tylenol 0 with Refill(s), Codeine #3] [id number], 210.82, cm, 10/28/21 16:00:00 CDT, Height, 103.75, kg, 10/28/21 16:00:00 CDT, Weight Acetaminoph 2021-0 Yes 1 - 2 Memor ia en 300 MG / 3-21 tablets, l Codeine 21:28: PO, Daily, Herm susanna Phosphate 00 PRN Pain, 30 MG Oral X 30 day, Tablet # 60 tab, [Tylenol 0 with Refill(s), Codeine #3] Pharmacy: [facility] #[id number], 210.82, cm, 10/28/21 16:00:00 CDT, Height, 103.75, kg, 10/28/21 16:00:00 CDT, Weight tramadol 2-0 Yes 50 mg = 1 Inder nixon hydrochlori 1-06 tab, PO, l de 50 MG 21:09: BID, X 30 Herm susanna Oral Tablet 00 day, # 60 tab, 0 Refill(s), Pharmacy: [email or web address] #[id number], 185.42, cm, 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, Height, 98.864, kg, 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, Weight tramadol 2021-0 Yes 50 mg = 1 Inder nixon hydrochlori 1-06 tab, PO, l de 50 MG 21:09: BID, X 30 Herm susanna Oral Tablet 00 day, # 60 tab, 0 Refill(s), Pharmacy: [email or web address] #[id number], 185.42, cm, 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, Height, 98.864, kg, 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, Weight tramadol 2021-0 Yes 50 mg = 1 Inder nixon hydrochlori 1-06 tab, PO, l de 50 MG 21:09: BID, X 30 Herm susanna Oral Tablet 00 day, # 60 tab, 0 Refill(s), Pharmacy: [email or web address] #[id number], 185.42, cm, 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, Height, 98.864, kg, 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, Weight rifaximin 2022-0 Yes 550 mg = 1 Me moria 550 MG Oral 1-06 tab, PO, l Tablet 20:31: TID, 0 Humza [XIFAXAN] 00 Refill(s) rifaximin 2022-0 Yes 550 mg = 1 Me moria 550 MG Oral 1-06 tab, PO, l Tablet 20:31: TID, 0 [place] [XIFAXAN] 00 Refill(s) rifaximin 2022-0 Yes 550 mg = 1 Me moria 550 MG Oral 1-06 tab, PO, l Tablet 20:31: TID, 0 Humza [XIFAXAN] 00 Refill(s) Tamsulosin 2018-08 Yes 0.4 mg = 1 M emoria hydrochlori 0-02 cap, PO, l de 0.4 MG 14:28: Daily, # Herm susanna Oral 00 30 cap, 11 Capsule Refill(s), [Flomax] Pharmacy: [email or web address] #[id number] Tamsulosin 2018-08 Yes 0.4 mg = 1 M emoria hydrochlori 0-02 cap, PO, l de 0.4 MG 14:28: Daily, # Herm susanna Oral 00 30 cap, 11 Capsule Refill(s), [Flomax] Pharmacy: [facility] #[id number] Tamsulosin 2018-08 Yes 0.4 mg = 1 M emoria hydrochlori 0-02 cap, PO, l de 0.4 MG 14:28: Daily, # Herm susanna Oral 00 30 cap, 11 Capsule Refill(s), [Flomax] Pharmacy: [email or web address] #[id number] Acetaminoph 2018-08 Yes TK 1 T PO M emoria en 300 MG / 0-02 BID PRN P l Codeine 13:12: Humza Phosphate 00 30 MG Oral Tablet Acetaminoph 2018-08 Yes TK 1 T PO M emoria en 300 MG / 0-02 BID PRN P l Codeine 13:12: Humza Phosphate 00 30 MG Oral Tablet Acetaminoph 2018-08 Yes TK 1 T PO M emoria en 300 MG / 0-02 BID PRN P l Codeine 13:12: [place] Phosphate 00 30 MG Oral Tablet Vital Signs Vital Name Observation Time Observation Value Comments Source Systolic blood 2022-12-31 17:40:00 105 mm[facility]Hg[facility] 2022-12-31 17:40:00 89 mm[Hg] [facility] Heart rate 2022-12-31 17:40:00 86 /min [facility] Body temperature 2022-12-31 17:40:00 36.94 Joy [facility] Respiratory rate 2022-12-31 17:40:00 18 /min [facility] Body weight 2022-12-31 17:40:00 101.152 kg [facility] BMI 2022-12-31 17:40:00 30.24 kg/m2 [facility] [place] [facility] Oxygen saturation in 2022-12-31 17:40:00 99 /min University of Arterial blood by [place] Medi enrique Pulse oximetry Branch Systolic blood 2022-05-19 16:05:00 94 mm[Hg] Univer sity of pressure [place] [facility] Diastolic blood 2022-05-19 16:05:00 62 mm[Hg] Unive rsity of pressure [place] [facility] Heart rate 2022-05-19 16:04:00 66 /min [facility] [place] [facility] Body temperature 2022-05-19 16:04:00 36.83 Joy Univ ersity [facility] [place] [facility] Body height 2022-05-19 16:04:00 182.9 cm [facility] [place] [facility] Body weight 2022-05-19 16:04:00 101.152 kg [facility] [place] [facility] BMI 2022-05-19 16:04:00 30.24 kg/m2 [facility] [place] [facility] Oxygen saturation in 2022-05-19 16:04:00 96 /min University of Arterial blood by [facility] Pulse oximetry Branch Systolic blood 2022-04-21 15:27:00 102 mm[Hg] Univer sity of pressure [place] [facility] Diastolic blood 2022-04-21 15:27:00 67 mm[Hg] Unive rsity of pressure [place] [facility] Heart rate 2022-04-21 15:27:00 72 /min [facility] [place] [facility] Body temperature 2022-04-21 15:27:00 36.67 Joy Univ ers[facility] [place] [facility] Body height 2022-04-21 15:27:00 182.9 cm [facility] [place] [facility] Body weight 2022-04-21 15:27:00 99.791 kg [facility] [place] [facility] BMI 2022-04-21 15:27:00 29.84 kg/m2 [facility] [place] [facility] Oxygen saturation in 2022-04-21 15:27:00 97 /min University of Arterial blood by [facility] Pulse oximetry Branch Heart Rate 2022-04-03 20:53:00 Kaley Ching Systolic (mm Hg) 2022-04-03 20:53:00 Inder rial Humza Diastolic (mm Hg) 2022-04-03 20:53:00 Mem orial Humza Height 2022-04-03 20:53:00 185.42 cm [facility] Weight 2022-04-03 20:53:00 [facility] BMI Calculated 2022-04-03 20:53:00 Memori al [place] Heart Rate 2021-10-28 21:00:00 [facility] Humza Systolic (mm Hg) 2021-10-28 21:00:00 Inder rial Humza Diastolic (mm Hg) 2021-10-28 21:00:00 Mem orial [place] Height 2021-10-28 21:00:00 210.82 cm [facility] Weight 2021-10-28 21:00:00 [facility] Humza BMI Calculated 2021-10-28 21:00:00 Memori al [place] Heart Rate 2021-08-15 20:33:00 [facility] [place] Systolic (mm Hg) 2021-08-15 20:33:00 Inder rial Humza Diastolic (mm Hg) 2021-08-15 20:33:00 Mem orial Humza Height 2021-08-15 20:33:00 185.42 cm [facility] Weight 2021-08-15 20:33:00 [facility] BMI Calculated 2021-08-15 20:33:00 Memori al Humza Systolic (mm Hg) 2021-03-13 14:51:00 Inder rial [place] Diastolic (mm Hg) 2021-03-13 14:51:00 Mem orial Humza Heart Rate 2021-03-13 14:51:00 [facility] Temperature Oral (F) 2021-03-13 14:51:00 97.0 F [facility] Height 2021-03-13 14:51:00 182.88 cm [facility] Weight 2021-03-13 14:51:00 [facility] Humza BMI Calculated 2021-03-13 14:51:00 Memori al [place] Weight 2021-01-16 19:40:00 [facility] Humza BMI Calculated 2021-01-16 19:40:00 Memori al Humza Systolic (mm Hg) 2021-01-16 19:40:00 Inder rial Humza Diastolic (mm Hg) 2021-01-16 19:40:00 Jett Ching Heart Rate 2021-01-16 19:40:00 Kaley Ching Temperature Oral (F) 2021-01-16 19:40:[address] [facility] Humza Height 2021-01-16 19:40:[address] [facility] Humza Height 2019-05-11 13:11:[address] [facility] Humza Weight 2019-05-11 13:11:[address] [facility] Humza BMI Calculated 2019-05-11 13:11:00 Sanjuana Abdalla Procedures Procedure Date / Time Performing Clinician Source Performed COMP. METABOLIC PANEL 2022-12-31 19:33:00 Tae Guo [facility] ([id number]) [facility] CBC WITH DIFF 2022-12-31 19:33:00 Tae Guo o f [facility] CONSENT/REFUSAL FOR 2022-12-31 17:34:29 Doctor Unassigned, No Un [facility] DIAGNOSIS AND TREATMENT Name [facility] Complex uroflowmetry 2021-12-12 14:43:00 Adali Ching (eg, calibrated electronic equipment) Measurement of 2021-12-12 14:43:00 Kaley watson post-voiding residual urine and/or bladder capacity by ultrasound, non-imaging Encounters Start End Encounter Admission Attending Care Care Encounter Source Date/Time Date/Time Type Type Clinicians Facility Department ID 2021-06-06 Inpatient R SEGUNDO [facility] [id number] Univers 11:57:51 [facility]18 [facility] [id number] [place] 13:36:59 Merged with [facility] 2023-02-20 2023-02-20 Telephone [facility] [id number] Univers 00:00:00 00:00:00 [facility] [id number] [facility] [id number] Miguel as MAYUR?BLEA [id number] Il mani SORENSEN [address] [place] [address] MEDICAL OFFICE BUILDING 2022-12-31 2022-12-31 Emergency X SINGER [facility] ERT [id number] Univers 12:41:00 17:08:00 TAE green [facility] 2022-12-31 2022-12-31 Emergency [facility] [id number] Univers 12:41:00 17:08:00 Tae BRITO [id number] i Guille [id number] [facility] [id number] [address] 2022-09-25 2022-09-25 Ambulatory [facility] [id number] Memoria 21:45:00 21:45:00 Pre-Reg Primary 21 l Care [facility] 2022-09-25 2022-09-25 Ambulatory [facility] [id number] Memoria 21:45:00 21:45:00 Pre-Reg Primary 21 l Care [facility] 2022-09-25 2022-09-25 Outpatient MHIE MHIE [id number] Memoria 15:45:00 15:45:00 21 l [facility] 2022-09-25 2022-09-25 Outpatient CLAUDIO Corrales MG [id number] 15:45:00 15:45:00 Cee Pierre 2022-07-07 2022-07-07 Outpatient [facility] [id number] Univers 10:40:00 10:40:[address] [facility] 2022-05-29 2022-05-29 [place] [id number] Memoria 15:00:00 15:00:00 Pre-Reg r General 22 l Surgery [facility] 2022-05-29 2022-05-29 [place] [id number] Memoria 15:00:00 15:00:00 Pre-Reg r General 22 l Surgery [facility] 2022-05-29 2022-05-29 [facility]patient [facility] [id number] 10:00:00 10:00:00 Simi 2022-05-20 2022-05-20 Outpatient MHIE MHIE [id number] Memoria 11:00:00 11:00:00 22 l Graham 2022-05-19 2022-05-19 Outpatient H[facility] [id number] Univers 10:40:00 13:31:[address] [facility] 2022-05-192022-05-19 Office [facility] 1.2.840.114 [id number] Univers 10:40:00 13:31:58 Visit [place] [facility] 350.1.13.10 ity of [place] 4.2.7.2.686 Miguel as MAYUR?BLEA [phone] [address] OFFICE [facility] 2022-05-12 2022-05-12 Telephone [facility] 1.2.894.461 [id number] Univers 00:00:00 00:00:00 Renu HEALTH 350.1.13.10 ity of [facility] 4.2.7.2.686 Miguel as MAYUR?BLEA [phone] [address] OFFICE [facility] 2022-04-21 2022-04-21 Outpatient R [facility] [id number] Univers 10:20:00 11:14:30 RENU ity [facility] 2022-04-21 2022-04-21 Office [facility] 1.2.840.114 [id number] Univers 10:20:00 11:14:30 Visit [facility] 350.1.13.10 ity of [place] 4.2.7.2.686 Miguel as MAYUR?BLEA [id number] [address] OFFICE [facility] 2022-04-15 2022-04-15 Outpatient R [facility] [id number] Univers 09:00:00 09:53:08 YULY ity of [facility] 2022-04-15 2022-04-15 [facility] 1.2.840.114 [id number] Univers 09:00:00 09:53:08 Visit [facility] 350.1.13.10 it y of [place] 4.2.7.2.686 Miguel as MAYUR?BLEA [phone] [address] OFFICE [facility] 2022-04-15 2022-04-15 Orders Doctor PEREZ 1.2.840.114 [id number] Univers 00:00:00 00:00:00 Only Unassigned, RICCARDO 350.1.13.10 ity of [place] [facility] 4.2.7.2.686 Miguel as [phone] [address] 2022-04-03 2022-04-04 [place] [id number] Memoria 21:00:00 04:59:59 r Primary 20 [facility] 2022-04-03 2022-04-04 [place] [id number] Memoria 21:00:00 04:59:59 r Primary 20 [facility] 2022-04-03 2022-04-03 [facility] [id number] 16:00:00 23:59:59 Cee Chilel 2022-04-03 2022-04-03 Outpatient MHIE MHIE [id number] Memoria 16:00:00 16:00:00 20 mehdi Ching 2022-03-19 2022-03-19 [place] [id number] Memoria 15:30:00 15:30:00 Pre-Reg r Urology [address] [facility] 2022-03-19 2022-03-19 [place] [id number] Memoria 15:30:00 15:30:00 Pre-Reg r Urology [address] [facility] 2022-03-19 2022-03-19 [place] [id number] Memoria 15:30:00 15:30:00 Pre-Reg r Urology 18 l Eric herrera [place] 2022-03-19 2022-03-19 [place] [id number] Memoria 15:30:00 15:30:00 Pre-Reg r Urology [address] [facility] 2022-03-19 2022-03-19 Outpatient MHIE MHIE [id number] Memoria 10:30:00 10:30:00 18 mehdi Ching 2022-03-19 2022-03-19 Outpatient MHIE MHIE [id number] Memoria 10:30:00 10:30:00 19 mehdi Ching 2022-03-19 2022-03-19 Outpatient Kash MG MHMG [id number] 10:30:00 10:30:00 Jem Jovita Rainey 2022-03-19 2022-03-19 Outpatient VISIT, CLAUDIO MG [id number] 10:30:00 10:30:00 MED_ASST 19 [facility]AHT 2022-03-11 2022-03-11 Outpatient NOELIE NOELIE [id number] Memoria 10:00:00 10:00:00 17 mehdi Graham 2022-03-11 2022-03-11 Outpatient NOELIE NOELIE [id number] Memoria 10:00:00 10:00:00 17 [facility] 2022-02-26 2022-02-26 Ambulatory nullFlavo MHMG [id number] Memoria 18:15:00 18:15:00 Pre-Reg r Primary 14 l [facility] 2022-02-26 2022-02-26 Ambulatory nullFlavo MHMG [id number] Memoria 18:15:00 18:15:00 Pre-Reg r Primary 14 l [facility] 2022-02-26 2022-02-26 Outpatient Savanna, MG MG [id number] 13:15:00 13:15:00 Cee Pierre 14 2022-02-05 2022-02-05 Ambulatory nullFlavo MHMG [id number] Memoria 15:30:00 15:30:00 Pre-Reg r Primary 09 l [facility] 2022-02-05 2022-02-05 Ambulatory nullFlavo MHMG [id number] Memoria 15:30:00 15:30:00 Pre-Reg r Primary 09 l [facility] 2022-02-05 2022-02-05 Outpatient LIZET COHENIE [id number] Memoria 10:30:00 10:30:00 09 [facility] 2022-02-05 2022-02-05 Outpatient Emi-Will MHMG MHMG [id number] 10:30:00 10:30:00 isBabs 09 2021-12-24 2021-12-24 Outpatient MHIE MHIE [id number] Memoria 11:00:00 11:00:00 14 mehdi Graham 2021-12-17 2021-12-18 Outpatient nullFlavo MHMG [id number] Memoria 19:30:00 04:59:59 r Urology 16 l [facility] 2021-12-17 2021-12-18 Outpatient nullFlavo [facility] [id number] Memoria 19:30:00 04:59:59 r Urology 16 l Eric Sellers javier [place] 2021-12-17 2021-12-17 Outpatient CLAUDIO Hewitt [facility] [id number] 14:30:00 23:59:59 Jem 16 Redd 2021-12-17 2021-12-17 Outpatient LIZET ZULMA [id number] Memoria 14:30:00 14:30:00 16 mehdi Ching 2021-12-12 2021-12-13 Outpatient nullFlavo [facility] [id number] Memoria 15:00:00 04:59:59 r Urology 15 l Eric Sellers javier [place] 2021-12-12 2021-12-13 Outpatient nullFlavo [facility] [id number] Memoria 15:00:00 04:59:59 r Urology [address] [facility] 2021-12-12 2021-12-12 Outpatient Kash [facility] [id number] 10:00:00 23:59:59 Jem 15 [facility] 2021-12-12 2021-12-12 Outpatient LIZET ZULMA [id number] Memoria 10:00:00 10:00:00 15 mehdi Humza 2021-12-02 2021-12-02 Orders Doctor ANA 1.2.840.114 [id number] Univers 00:00:00 00:00:00 Only Unassigned, RICCARDO 350.1.13.10 ity of [place] [facility] 4.2.7.2.686 Miguel as [phone] [address] 2021-11-27 2021-11-28 Outpatient nullFlavo [facility] [id number] Memoria 15:00:00 04:59:59 r Urology [address] [facility] 2021-11-27 2021-11-28 Outpatient nullFlavo [facility] [id number] Memoria 15:00:00 04:59:59 r Urology 12 l Eric Sellers javier [place] 2021-11-27 2021-11-27 Outpatient Kash [facility] [id number] 10:00:00 23:59:59 Jem 12 Red[place] 2021-11-27 2021-11-27 Outpatient MHIE IE [id number] Memoria 10:00:00 10:00:00 12 [facility] 2021-11-26 2021-11-26 [place] [id number] Memoria 16:00:00 16:00:00 Pre-Reg r General 13 l Surgery [facility] 2021-11-26 2021-11-26 [place] [id number] Memoria 16:00:00 16:00:00 Pre-Reg r General 13 l [facility] 2021-11-26 2021-11-26 Outpatient MHIE IE [id number] Memoria 11:00:00 11:00:00 13 [facility] 2021-11-26 2021-11-26 [facility]patient [facility] [id number] 11:00:00 11:00:00 [facility] 13 2021-11-05 2021-11-05 Orders Doctor ANA 1.2.840.114 [id number] Univers 00:00:00 00:00:00 Only Unassigned, RICCARDO 350.1.13.10 ity of [place] [facility] 4.2.7.2.686 Miguel as [phone] [place] [address] [place] 2021-10-28 2021-10-29 [place] [id number] Memoria 20:45:00 04:59:59 r Primary 11 [facility] 2021-10-28 2021-10-29 [place] [id number] Memoria 20:45:00 04:59:59 r Primary 11 [facility] 2021-10-28 2021-10-28 Outpatient Emi-Will MHMG MG [id number] 15:45:00 23:59:59 is, Babs 11 2021-10-28 2021-10-28 Outpatient MHIE IE [id number] Memoria 15:45:00 15:45:00 11 [facility] 2021-10-21 2021-10-21 [place] [id number] Memoria 19:30:00 19:30:00 Pre-Reg r Primary 10 [facility] 2021-10-21 2021-10-21 [place] [id number] Memoria 19:30:00 19:30:00 Pre-Reg r Primary 10 l [facility] 2021-10-21 2021-10-21 Outpatient MHIE MHIE [id number] Memoria 14:30:00 14:30:00 10 [facility] 2021-10-21 2021-10-21 Outpatient Emi-Will MG [facility] [id number] 14:30:00 14:30:00 isBabs 10 2021-10-18 2021-10-18 Orders Doctor ANA 1.2.840.114 [id number] Univers 00:00:00 00:00:00 Only Unassigned, RICCARDO 350.1.13.10 ity of [place] [facility] 4.2.7.2.686 Miguel as [phone] [address] 2021-09-18 2021-09-18 Orders Doctor ANA 1.2.840.114 [id number] Univers 00:00:00 00:00:00 Only Unassigned, RICCARDO 350.1.13.10 ity of [place] [facility] 4.2.7.2.686 Miguel as [phone] [address] 2021-09-04 2021-09-05 Outpt Diag nullFlavo [facility] [id number] Memoria 14:39:00 05:59:00 Services r Outpatient 00 l [facility] 2021-09-04 2021-09-05 Outpt Diag nullFlavo [facility] [id number] Memoria 14:39:00 05:59:00 Services r Outpatient 00 l [facility] 2021-09-04 2021-09-04 Outpatient Emi-Will MHOIP MHOIP [id number] 08:39:00 23:59:00 isBabs 00 2021-08-15 2021-08-16 Outpatient nullFlavo [facility] [id number] Memoria 20:30:00 05:59:59 r Primary 08 l [facility] 2021-08-15 2021-08-16 Outpatient nullFlavo [facility] [id number] Memoria 20:30:00 05:59:59 r Primary 08 l [facility] 2021-08-15 2021-08-15 Outpatient Jame [facility] [id number] 14:30:00 23:59:59 Kenyatta 08 T[place] 2021-08-15 2021-08-15 Outpatient MHZULMA HINDS [id number] Memoria 14:30:00 14:30:00 08 [facility] 2021-03-25 2021-03-27 Phone nullFlavo MG [id number] Memoria 16:58:03 04:59:59 Message r Primary 00 l [facility] 2021-03-25 2021-03-27 Phone nullFlavo MG [id number] Memoria 16:58:03 04:59:59 Message r Primary 00 [facility] 2021-03-25 2021-03-26 Outpatient MG MG [id number] 11:58:03 23:59:59 00 2021-03-13 2021-03-14 [place] [id number] Memoria 14:40:00 04:59:59 r Primary 07 [facility] 2021-03-13 2021-03-14 [place] [id number] Memoria 14:40:00 04:59:59 r Primary 07 [facility] 2021-03-13 2021-03-13 Outpatient Jame [facility] [id number] 09:40:00 23:59:59 Kenyatta 07 Tiff[place] 2021-03-13 2021-03-13 Outpatient MHZULMA COHENIE [id number] Memoria 09:40:00 09:40:00 07 [facility] 2021-03-11 2021-03-11 [place] [id number] Memoria 20:20:00 20:20:00 Pre-Reg r Primary 06 [facility] 2021-03-11 2021-03-11 [place] [id number] Memoria 20:20:00 20:20:00 Pre-Reg r Primary 06 [facility] 2021-03-11 2021-03-11 Outpatient MHIE MHIE [id number] Memoria 15:20:00 15:20:00 06 mehdi Graham 2021-03-11 2021-03-11 Outpatient Jame [facility] [id number] 15:20:00 15:20:00 Kenyatta 06 T[place] 2021-02-21 2021-02-21 [place] [id number] Memoria 18:20:00 18:20:00 Pre-Reg r Primary 05 l [facility] 2021-02-21 2021-02-21 [place] [id number] Memoria 18:20:00 18:20:00 Pre-Reg r Primary 04 l [facility] 2021-02-21 2021-02-21 [place] [id number] Memoria 18:20:00 18:20:00 Pre-Reg r Primary 05 l [facility] 2021-02-21 2021-02-21 [place] [id number] Memoria 18:20:00 18:20:00 Pre-Reg r Primary 04 l [facility] 2021-02-21 2021-02-21 Outpatient MHIE MHIE [id number] Memoria 13:30:00 13:30:00 04 mehdi Graham 2021-02-21 2021-02-21 Outpatient MHIE MHIE [id number] Memoria 13:20:00 13:20:00 05 [facility] 2021-02-21 2021-02-21 Outpatient Jame [facility] [id number] 13:20:00 13:20:00 Kenyatta 04 Tiffanie 2021-02-21 2021-02-21 Outpatient Jame MG [facility] [id number] 13:20:00 13:20:00 Kenyatta 05 Tiffanie 2021-02-19 2021-02-20 Outpatient [facility]Flavo [id number] Memoria 17:07:00 04:59:00 r Humza [facility] 2021-02-19 2021-02-20 Outpatient nullFlavo [facility] [id number] Memoria 17:07:00 04:59:00 r Graham [facility] 2021-02-19 2021-02-19 Outpatient CAROL, MHSE MHSE [id number] 12:07:00 23:59:00 [facility] 2021-02-19 2021-02-19 Outpatient Carol, MHSE MHSE [id number] 12:07:00 23:59:00 Singh 01 2021-01-16 2021-01-17 [place] [id number] Memoria 19:30:00 04:59:59 r Primary 03 [facility] 2021-01-16 2021-01-17 Outpatient nullFlavo MHMG [id number] Memoria 19:30:00 04:59:59 r Primary 03 [facility] 2021-01-16 2021-01-16 Outpatient Jame MG MG [id number] 14:30:00 23:59:59 Kenyatta 03 Tiffanie 2021-01-16 2021-01-16 Outpatient MHIE MHIE [id number] Memoria 14:30:00 14:30:00 03 mehdi Graham 2020-09-17 2020-09-17 Outpatient Homa OBRIEN [facility] [id number] Univers 16:20:00 16:20:00 NIELS green [facility] 2020-09-07 2020-09-07 Ancillary Miri Casas [facility] 1 .2.840.114 [id number] Univers 09:02:04 10:00:53 [facility] [phone] Il dical [address] 2020-09-07 2020-09-07 Outpatient Homa [facility] [id number] Univers 09:00:00 09:00:00 NIELS green [facility] 2020-09-07 2020-09-07 Orders Doctor PEREZ 1.2.840.114 [id number] Univers 00:00:00 00:00:00 Only Unassigned, RICCARDO 350.1.13.10 [facility] 4.2.7.2.686 Miguel as [phone] [place] [address] [place] 2020-02-27 2020-05-02 Ancillary Danita Fagan [facility] 1.2.840. 114 [id number] [facility] 09:18:19 14:13:48 Visit Niels Obrien 350.1.13.10 ity of [place] [phone] Il dical nal [address] [facility] 2020-02-27 2020-05-02 Ancillary Rylan [facility] 1.2.932.656 [id number] 09:18:19 14:13:48 Visit Danita Castellanos Ervin 350.1.13.10 [place] 4.2.7.2.686 Professio [phone] [facility] 2020-02-20 2020-05-02 Ancillary Danita Fagan [facility] 1.2.840. 114 [id number] [facility] 09:27:42 14:12:56 Visit Niels Obrien 350.1.13.10 it[place] of [place] [phone] Il dical nal [address] [facility] 2020-02-13 2020-05-02 Ancillary Danita Fagan [facility] 1.2.840. 114 [id number] [facility] 09:24:53 14:12:21 Visit Niels Obrien 350.1.13.10 ity of [place] [phone] Il dical [facility] [address] [facility] 2020-01-18 2020-03-05 Ancillary Gaetano Nunez [facility] 1.2.840. 114 [id number] [facility] 15:42:12 10:34:13 Visit Niels Obrien 350.1.13.10 ity of [place] [phone] Il dical nal 179 [facility] 2020-02-13 2020-02-13 Outpatient Homa [facility]RI[facility] [id number] [facility] 09:20:00 09:20:00 NIELS green [facility] 2020-02-01 2020-02-01 [employer] Operator Daren [employer] [facility] 1.2.8 40.114 [id number] Univers 13:31:58 13:46:58 Visit Charles Man 350.1. 13.10 ity of [place] [phone] Il dical nal [address] [facility] 2020-02-01 2020-02-01 Outpatient R SEGUNDO [facility] [id number] Univers 13:30:00 13:30:00 CHARLES ity [facility] 2020-02-01 2020-02-01 Orders Doctor ANA 1.2.840.114 [id number] Univers 00:00:00 00:00:00 Only Unassigned, RICCARDO 350.1.13.10 ity of [place] [facility] 4.2.7.2.686 Miguel as [phone] [address] 2020-01-30 2020-01-30 Ancillary Gaetano Nunez [facility] 1.2.840. 114 [id number] Univers 09:20:00 10:00:00 Visit Niels Obrien 350.1.13.10 it[place] of [place] [phone] Il dical nal 179 [facility] 2020-01-23 2020-01-23 Ancillary Danita Fagan [facility] 1.2.840. 114 [id number] Univers 15:50:43 16:30:43 Visit Niels Obrien 350.1.13.10 [place] [phone] Il dical nal 179 [facility] 2020-01-16 2020-01-16 Ancillary Gaetano Nunez [facility] 1.2.840. 114 [id number] Univers 09:26:08 10:06:08 Visit Niels Obrien 350.1.13.10 [place] [phone] Il dical nal 179 [facility] 2020-01-12 2020-01-12 Ancillary Miri Casas [facility] 1 .2.840.114 [id number] Univers 09:28:41 10:08:41 Visit Obrien Niels Brito 350.1.13.10 ity of [place].2.[place] [phone] Il dical nal [address] [facility] 2020-01-10 2020-01-10 Outpatient R MICAH [facility] [id number] Univers 09:20:00 09:20:00 NIELS ity of [facility] 2020-01-04 2020-01-04 Ancillary Gaetano Nunez [facility] 1.2.840. 114 [id number] [facility] 14:14:44 15:14:44 Visit Charles Man 350.1. 13.10 it[place] of [place] [phone] Il dical nal 179 [facility] 2019-12-26 2019-12-26 Ancillary Gaetano Nunez [facility] 1.2.840. 114 [id number] Univers 09:02:21 10:02:21 Visit Niels Obrien 350.1.13.10 it[place] of [place] [phone] Il dical nal 179 [facility] 2019-12-21 2019-12-21 Ancillary Gaetano Nunez [facility] 1.2.840. 114 [id number] Univers 09:33:50 10:04:42 Visit Niels Obrien 350.1.13.10 it[place] of [place] [phone] Il dical nal 179 [facility] 2019-12-14 2019-12-14 Ancillary Dulce Maria Nunez Jaye [facility] 1.2.840 .114 [id number] Univers 09:21:10 10:01:10 Visit Charles Man 350.1. 13.10 ity of [place] [phone] Il dical nal [address] [facility] 2019-12-14 2019-12-14 Outpatient R [facility] [id number] Univers 09:20:00 09:20:00 ity of [facility] 2019-12-12 2019-12-12 Ancillary Danita Fagan [facility] 1.2.840. 114 [id number] Univers 09:15:38 09:55:38 Visit Charles Man Ervin 350.1. 13.10 ity of [place] [phone] Il dical nal 179 [facility] 2019-12-05 2019-12-05 Ancillary Danita Fagan [facility] 1.2.840. 114 [id number] Univers 08:52:27 16:33:07 Visit Niels Obrien 350.1.13.10 ity of [place] [phone] Il dical nal 179 [facility] 2019-11-30 2019-11-30 Ancillary Dulce Maria Nunez [facility] 1.2.840 .114 [id number] Univers 09:12:02 12:01:08 Visit Niels Obrien 350.1.13.10 it[place] of [place] [phone] Il dical nal 179 [facility] 2019-11-28 2019-11-28 Ancillary FaganDanita garcía [facility] 1.2.840. 114 [id number] [facility] 09:13:57 15:52:51 Visit Niels Obrien 350.1.13.10 it[place] of [place] [phone] Il dical nal 179 [facility] 2019-11-23 2019-11-23 Ancillary Dulce Maria Nunez [facility] 1.2.840 .114 [id number] Univers 09:09:11 09:49:11 Visit Niels Obrien 350.1.13.10 it[place] of [place] [phone] Il dical nal 179 [facility] 2019-11-21 2019-11-21 Ancillary FaganEarnest garcíacali Jasmin [facility] 1.2.840. 114 [id number] Univers 09:26:02 15:00:54 Visit Niels Obrien 350.1.13.10 it[place] of [place] [phone] Il dical nal [address] [facility] 2019-11-16 2019-11-16 Ancillary Dulce Maria Nunez [facility] 1.2.840 .114 [id number] Univers 08:52:25 11:36:56 Visit Niels Obrien 350.1.13.10 it[place] of [place] [phone] Il dical nal 179 [facility] 2019-11-14 2019-11-14 Ancillary Danita Fagan [facility] 1.2.840. 114 [id number] Univers 08:59:18 16:39:18 Visit Niels Obrien 350.1.13.10 it[place] of [place].2.[place] [phone] Il dical nal 179 [facility] 2019-11-09 2019-11-09 Ancillary Dulce Maria Nunez [facility] 1.2.840 .114 [id number] Univers 09:37:51 16:03:49 Visit Niels Obrien 350.1.13.10 it[place] of [place] [phone] Il dical nal 179 [facility] 2019-11-09 2019-11-09 Outpatient R MICAH [facility] [id number] Univers 09:20:00 09:20:00 NIELS green of [facility] 2019-11-07 2019-11-07 Ancillary Danita Fagan [facility] 1.2.840. 114 [id number] Univers 09:08:15 11:59:10 Visit Niels Obrien 350.1.13.10 it[place] of [place] [phone] Il dical nal 179 [facility] 2019-11-02 2019-11-02 Outpatient R ARTURO [facility] [id number] [facility] 10:14:28 23:59:00 BRADY herbert [facility] 2019-11-02 2019-11-02 Hospital Attar, [facility] 1.2.840.114 [id number] Univers 10:14:00 23:59:00 Encounter Bradylacie Brito 350.1.13.10 [place] [facility] [phone] [facility] [address] 2019-11-02 2019-11-02 Ancillary Dulce Maria Nunez [facility] 1.2.840 .114 [id number] Univers 08:46:50 09:26:50 Visit Niels Obrien 350.1.13.10 ity [place] [phone] [place] dical nal [address] [facility] 2019-11-02 2019-11-02 Orders Doctor ANA 1.2.840.114 [id number] Univers 00:00:00 00:00:00 Only Unassigned, RICCARDO 350.1.13.10 ity of [place] [facility] 4.2.7.2.686 Miguel as [phone] [facility] [address] 2019-10-31 2019-10-31 Ancillary Gaetano Nunez [facility] 1.2.840. 114 [id number] Univers 08:46:17 09:26:17 Visit Niels Obrien 350.1.13.10 [place] [phone] [place] dical n[place] [address] [facility] 2019-10-28 2019-10-28 Ancillary Dulce Maria Nunez [facility] 1.2.840 .114 [id number] [facility] 09:27:39 11:11:18 Visit Niels Obrien 350.1.13.10 [place] [phone] [place] dical n[place] [address] [facility] 2019-10-26 2019-10-26 Ancillary Gaetano Nunez [facility] 1.2.840. 114 [id number] Univers 09:20:27 10:00:27 Visit Niels Obrien 350.1.13.10 [place] [phone] [place] d[place] [address] [facility] 2019-10-24 2019-10-24 Ancillary Gaetano Nunez [facility] 1.2.840. 114 [id number] [facility] 09:17:09 09:57:09 Visit Niels Obrien 350.1.13.10 [place] [phone] [place] dical n[place] [address] [facility] 2019-10-21 2019-10-21 Ancillary Miri Casas [facility] 1 .2.840.114 [id number] [facility] 09:14:54 09:54:54 Visit Niels Obrien 350.1.13.10 [place] [phone] [place] dical n[place] [address] [facility] 2019-10-19 2019-10-19 Ancillary Gaetano Nunez [facility] 1.2.840. 114 [id number] [facility] 08:49:08 09:29:08 Visit Niels Obrien 350.1.13.10 [place] [phone] [place] dical [place] [address] [facility] 2019-10-17 2019-10-17 Ancillary Miri Casas [facility] 1 .2.840.114 [id number] [facility] 10:10:23 11:10:23 Visit Niels Obrien 350.1.13.10 ity of [place] [phone] Il dical nal 179 [facility] 2019-10-17 2019-10-17 Outpatient R [facility] [id number] Univers 09:20:00 09:20:00 NIELS green of [facility] 2019-10-12 2019-10-13 [facility] [id number] [facility] 06:05:00 14:52:00 Encounter Charles Brito 350.1.13.10 [place] [phone] [facility] [address] 2019-10-13 2019-10-13 Orders Doctor ANA 1.2.840.114 [id number] Univers 00:00:00 00:00:00 Only Unassigned, RICCARDO 350.1.13.10 ity of [place] [facility] 4.2.7.2.686 Miguel as [phone] [facility] [address] 2019-10-12 2019-10-12 Anesthesia Jose Potts [facility] 1.2.840.11 [id number] Univers 07:16:00 10:39:00 Blas Briceño 35 0.1.13.10 [place] [phone] [facility] [address] 2019-10-12 2019-10-12 Orders Doctor ANA [id number] [id number] Univers 00:00:00 00:00:00 Only Unassigned, RICCARDO 350.1.13.10 ity of [place] [facility] 4.2.7.2.686 Miguel as [phone] [facility] [address] 2019-10-10 2019-10-10 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 13.10 [place] [phone] Il dical [facility] [address] [facility] 2019-10-10 2019-10-10 Outpatient R [facility] [id number] Univers 10:43:45 10:45:00 CHARLES green [facility] 2019-10-10 2019-10-10 [facility] 1.2.840.114 [id number] Univers 10:43:00 10:45:00 Encounter Charles Brito 350.1.13.10 [place] [phone] [facility] [address] 2019-06-01 2019-06-01 Ambulatory nullFlavo [facility] [id number] Memoria 15:00:00 15:00:00 Pre-Reg r Urology 01 l Eric herrera [place] 2019-06-01 2019-06-01 [place] [id number] [facility] 15:00:00 15:00:00 Pre-Reg r Urology 01 l Eric herrera [place] 2019-06-01 2019-06-01 Ambulatory nullFlavo [facility] [id number] Memoria 14:45:00 14:45:00 Pre-Reg r Urology 02 mehdi herrera [place] 2019-06-01 2019-06-01 [place] [id number] Memoria 14:45:00 14:45:00 Pre-Reg r Urology 02 mehdi herrera [place] 2019-06-01 2019-06-01 Outpatient MHIE MHIE [id number] Memoria 10:00:00 10:00:00 01 mehdi Ching 2019-06-01 2019-06-01 [facility] [id number] 10:00:00 10:00:00 Jem S 2019-06-01 2019-06-01 Outpatient NOELIE NOELIE [id number] Memoria 09:45:00 09:45:00 02 mehdi Ching 2019-06-01 2019-06-01 [facility] [id number] 09:45:00 09:45:00 MED_ASST 02 [facility] 2019-05-11 2019-05-12 Outpatient nullFlavo MG Multi 55 [id number] Memoria 14:15:00 04:59:59 r Specialty 00 l [facility] 2019-05-11 2019-05-12 Outpatient nullFlavo [facility] Multi 55 [id number] Memoria 14:15:00 04:59:59 r Specialty 00 l [facility] 2019-05-11 2019-05-11 Outpatient Kash [facility] [id number] 09:15:00 23:59:59 Jem S 2019-05-11 2019-05-11 Outpatient NOELIE NOELIE [id number] Memoria 09:15:00 09:15:00 00 mehdi Ching Results Test Description Test Time Test Comments Results Result Comments Source COMP. METABOLIC PANEL (05264) 2022-12-31 20:17:17 Test Item Value Reference Range Interpretation Comme nts NA (test code = 8976328973) 138 mmol/L 135-145 K (test code = 2528119419) 3.9 mmol/L 3.5-5.0 CL (test code = 4959969321) 103 mmol/L 98-108 CO2 TOTAL (test code = 29 mmol/L 23-31 2636141754) AGAP (test code = 5940643748) 6 2-16 BUN (test code = 0154702073) 17 mg/dL 7-23 GLUCOSE (test code = 0968382326) 79 mg/dL 70-110 CREATININE (test code = 1.00 mg/dL 0.60-1.25 7375500244) TOTAL BILI (test code = 0.7 mg/dL 0.1-1.3 2590341546) CALCIUM (test code = 8171323810) 8.7 mg/dL 8.6-10.6 T PROTEIN (test code = 6.9 g/dL 6.3-8.2 8501046682) ALBUMIN (test code = 7527699116) 4.1 g/dL 3.5-5.0 ALK PHOS (test code = 1047377547) 71 U/L 34-122 ALTv (test code = 1742-6) 17 U/L 5-50 AST(SGOT) (test code = 20 U/L 13-40 4325761140) eGFR (test code = 8973054795) 75.7 mL/min/1.73m2 LEVI (test code = LEVI) Association of Glomerular Filtration Rate (GFR) and Staging of Kidney Disease* + +--------- + ----+| GFR (mL/min/1.73 m2) ?| With Kidney Damage ?| ?Without Kidney Damage+ +--- + +| ?>90 ?| ?Stage one ?| ? Normal ?+ +-------- + -----+| ?60-89 ?| ?Stage two ?| ? Decreased GFR ? + +--------- + ----+| ?30-59 ?| ?Stage three ?| ? Stage three ? + +--------- + ----+| ?15-29 ?| ?Stage four ? | ? Stage four ?+ +-------- + -----+| ?<15 (or dialysis) ? ?| ?Stage five ? | ? Stage five ?+ +-------- + -----+ *Each stage assumes the associated GFR level has been in effect for at least three months. ?Stages 1 to 5, with or without kidney disease, indicate chronic kidney disease. Notes: Determination of stages one and two (with eGFR >59mL/min/1.73 m2) requires estimation of kidney damage for at least three months as defined by structural or functional abnormalities of the kidney, manifested by either:Pathological abnormalities or Markers of kidney damage (including abnormalities in the composition of the blood or urine or abnormalities in imaging tests). [facility] WITH [id number] 20:05:32 Test Item Value Reference Range Interpretation Comments WBC (test code = 5.51 See_Comment [Automated 0517-2) message] The sy stem which generated this result transmitted reference range : 4.20 - 10.70 10*3/?L. The reference range was not used to interpret this result as normal/abnormal . RBC (test code = 4.45 See_Comment [Automated 948-8) message] The sy stem which generated this result transmitted reference range : 4.26 - 5.52 10*6/?L. The reference range was not used to interpret this result as normal/abnormal . HGB (test code = 14.4 g/dL 12.2-16.4 718-7) HCT (test code = 42.6 % 38.4-49.3 4544-3) MCV (test code = 95.7 fL 81.7-95.6 H 787-2) MCH (test code = 32.4 pg 26.1-32.7 785-6) MCHC (test code = 33.8 g/dL 31.2-35.0 786-4) RDW-SD (test code = 49.8 fL 38.5-51.6 52703-8) RDW-CV (test code = 14.1 % 12.1-15.4 788-0) PLT (test code = 233 See_Comment [Automated 097-3) message] The sy stem which generated this result transmitted reference range : 150 - 328 10*3/ ?L. The reference r hamida was not used to interpret this result as normal/abnormal . MPV (test code = 8.2 fL 9.8-13.0 L 36267-7) NRBC/100 WBC (test 0.0 See_Comment [Automat ed code = 2562438462) message] The system which generated this result transmitted reference range : 0.0 - 10.0 /100 WBCs. The refer ence range was not u sed to interpret th is result as normal/abnormal . NRBC x10^3 (test code See_Comment [Auto mated = 1469813679) message] The s ystem which generated this result transmitted reference range : 10*3/?L. The reference range was not used to interpret this result as normal/abnormal . GRAN MAT (NEUT) % 51.0 % (test code = 770-8) IMM GRAN % (test code 0.20 % = 3100944380) LYMPH % (test code = 37.7 % 736-9) MONO % (test code = 8.7 % 5905-5) EOS % (test code = 1.3 % 713-8) BASO % (test code = 1.1 % 706-2) GRAN MAT x10^3(ANC) 2.81 10*3/uL 1.99-6.95 (test code = 1986819465) IMM GRAN x10^3 (test 0.00-0.06 code = 3705237060) LYMPH x10^3 (test code 2.08 10*3/uL 1.09-3.23 = 731-0) MONO x10^3 (test code 0.48 10*3/uL 0.36-1.02 = 742-7) EOS x10^3 (test code = 0.07 10*3/uL 0.06-0.53 711-2) BASO x10^3 (test code 0.06 10*3/uL 0.01-0.09 = 704-7) Lab Interpretation Abnormal (test code = 62350-6) [id number] 18:44:00 Test Item Value Reference Range Interpretation Comments POC Creatinine (test code = POC 1.2 0.5-1.4 Creatinine) [facility] [id number] 18:44:00 Test Item Value Reference Range Interpretation Comments POC Creatinine (test code = POC 1.2 0.5-1.4 Creatinine) [facility] [id number] 18:44:00 Test Item Value Reference Range Interpretation Comments eGFR (test code = eGFR) 65 [facility] [id number] 18:44:00 Test Item Value Reference Range Interpretation Comments eGFR (test code = eGFR) 65 [facility] [id number] 18:44:00 Test Item Value Reference Range Interpretation Comments POC Creatinine (test code = POC 1.2 0.5-1.4 Creatinine) [facility] [id number] 18:44:00 Test Item Value Reference Range Interpretation Comments eGFR (test code = eGFR) 65 [facility] Notes Date/Time Note Provider Source 2021-09-04 09:06:19-00:00 PROCEDURE INFORMATION: LORIEJudy Brundidge Exam: MR Pelvis Without and With Contrast Exam date and time: 09/04/2021 9:12 AM Age: 61 years old Clinical indication: Pelvic and perineal pain; Additional info: /pelvic pain in male TECHNIQUE: Imaging protocol: Magnetic resonance images of t he pelvis without and with intravenous contrast. Contrast material: CLARISCAN; Contrast volume: 2 0 ml; Contrast route: INTRAVENOUS (IV); COMPARISON: Enterography Abd/Pelvis w contrast CT 02/19/2021 1:54 PM FINDINGS: Limitations: Mild motion degraded study. Bones and joints: No evidence of acute fracture. There is a 2 cm sclerotic lesion in the medial left iliac wing, se en on prior CT. This is hypointense on T1 and T2 pulse sequences. Mild surrounding rim of hyperintensity, however no enhancement internally of this lesion. This is m ost compatible with a bone island. There is mild diffuse heterogeneous T1 signal in the bones without discrete marrow lesion. This is most suggestive of marrow conversion or cellularity. Mild degenerative changes of the SI joints, and lower lumbar spine. Minimal degenerative change of both hips. There is a sma ll synovial herniation pit in the right femoral neck. Soft tissues: There are small bilateral fat cont aining inguinal hernias. Evidence of hernia mesh repair. Associated susce ptibility artifact. Nonenhancing nodule identified in the prostate. Please note, this is not a dedicated prostate exam. This is best seen on th e coronal T1 post contrast images (series 801, image 25). Consider dedicated prostate exam and imaging if clinically indicated. The prostate is also enlar ged. Few scattered colonic diverticula. Muscles and tendons: The visualized muscles have a normal signal. No significant muscle edema. The visualized tendons are intact. IMPRESSION: 1. No definitive MR evidence of acute abnormalit y. Left medial iliac wing sclerotic lesion has signal characterist ics most compatible with an enostosis. 2. Mild degenerative changes of the spine, hips, SI joints. 3. Small bilateral fat containing inguinal herni as. Evidence of hernia mesh repair. 4. Prostate nodule, please note this is not a de dicated prostate MRI. Recommend correlation with prostate exam, and pr ostate imaging if clinical concern. Marko Bishop MD On 09/04/2021 11:13:53; [facility] [id number] 12:22:00-00:00 Radiation Dose CTDIVOL = 0 ( mGy): DLP = 413.97 (mGy-cm) Felicia PROCEDURE INFORMATION: Exam: CT Abdomen And Pelvis With Contrast Exam date and time: 02/19/2021 1:54 PM Age: 60 years old Clinical indication: Left lower quadrant pain; A dditional info: /r10.32 left lower quadrant pain, z12.11 encounter for screen ing for malignant neoplasm of colon, z86.010 personal history of colonic polyp s TECHNIQUE: Imaging protocol: Computed tomography of the abdomen and pelvis with contrast. Radiation optimization: All CT scans at this facility use at least one of these dose optimization techniques: automated exposure control; mA and/or kV adjustment per patient size (includes targeted e xams where dose is matched to clinical indication); or iterative reconstructio n. Contrast material: OMNI; Contrast volume: 80 ml; Contrast route: INTRAVENOUS (IV); Other contrast: Oral, omni, 50; COMPARISON: No relevant prior studies available. RADIATION DOSE METRICS: Total DLP (mGy-cm): 413.97 FINDINGS: Lungs: Linear subsegmental atelectasis or scarri ng is present at the lung bases. Mild tree-in-bud nodularity is present in the left lower lobe. Liver: A 1.1 cm vaguely hyperattenuating, ovoid observation is present in hepatic segment 8 (series 3, image 37). There is normal hepatic contour and morphology. Gallbladder and bile ducts: The gallbladder is u nremarkable. No intra or extrahepatic biliary ductal dilatation. Pancreas: The pancreas is unremarkable. Spleen: Normal. Adrenal glands: Unremarkable. Kidneys and ureters: Normal. No hydronephrosis. Stomach and bowel: The stomach is unremarkable. The jejunum is not well distended. Ileal loops appear adequately distend ed with neutral enteric contrast. There is no evidence of small bowel di latation, small bowel wall thickening, or mucosal hyper enhancement. The colon is unremarkable. No evidence of colonic wall thickening o r mucosal hyperenhancement. A few scattered colonic diverticula are present, without CT evidence of acute diverticulitis. The terminal ileum is unremarkable. Appendix: Unremarkable. Intraperitoneal space: No free air. No free flui d. No significant fluid collection. Vasculature: Atheromatous changes are present in the aorta. Lymph nodes: No lymphadenopathy. Urinary bladder: Unremarkable as visualized. Reproductive: Prostate is mildly enlarged. Bones/joints: A 2 cm nonspecific sclerot ic lesion is present in the left iliac wing (series 3, image 90). T here is diffuse marrow heterogeneity of the osseous structures. No evidence of acute osseous abnorma lity. Soft tissues: Left inguinal hernia mesh repair. No recurrent hernia is visualized. IMPRESSION: 1. No acute abnormality visualized. No evidence of active inflammatory bowel disease. 2. Postsurgical change of left inguinal hernia m esh repair. No evidence of recurrent hernia. 3. Mild colonic diverticulosis, without CT evide nce of acute diverticulitis. 4. Tree-in-bud nodularity in the left lower lobe may represent infectious bronchiolitis or other small airways inflammatio n. 5. A 2 cm nonspecific sclerotic lesion in the le ft iliac wing. Osseous metastasis is not excluded. Correlate for any hi story of malignancy. This finding could be further evaluated with MRI pelv is with and without contrast. 6. Nonspecific diffuse heterogeneity of the osse ous structures. Differential considerations are broad and include osteopenia, metabolic abnormalities, or infiltrative process. 7. A 1.1 cm vague, hyperattenuating lesion in th e right lobe of the liver. Consider nonemergent follow-up MRI liver protoco l with and without contrast. Ivanna Garcia MD On 02/22/2021 09:56:55; [employer] [id number]"
--- NOTE | 2023-02-20 21:10 | RAD REPORT ---
EXAM DESCRIPTION: CT - CTHCSPWOC - 02/20/2023 8:59 pm CLINICAL HISTORY: Trauma, head and neck injury. TRAUMA COMPARISON: Abdomen Pelvis Wo Contrast dated 05/22/2020 TECHNIQUE: Axial 5 mm thick images of the head were obtained. Axial 2 mm thick images of the cervical spine were obtained with sagittal and coronal reconstruction images generated and reviewed. All CT scans are performed using dose optimization technique as appropriate and may include automated exposure control or mA/KV adjustment according to patient size. FINDINGS: CT HEAD WITHOUT CONTRAST: No acute hemorrhage, hydrocephalus or extra-axial collection is identified.No areas of brain edema or midline shift. Paranasal sinus thickening.The calvarium is intact. CT CERVICAL SPINE WITHOUT CONTRAST: No fracture or subluxation.No prevertebral soft tissues swelling is identified. IMPRESSION: No acute intracranial or cervical spine findings.
[2023-02-20 22:09] LABS: Absolute Lymphocytes (CBC) 1.8 K/uL (0.7-4.9); Hematocrit 44.1 % (39.6-49.0); Lymphocytes % 32.5 % (15.3-44.8); MCV 97.7 fL (80-100); MPV 6.4 fL (7.6-11.3); RBC Red Blood Cell Count 4.51 M/uL (4.33-5.43)
[2023-02-20 22:27] LABS: Albumin 3.7 g/dL (3.4-5.0); Bilirubin Total 0.4 mg/dL (0.2-1.0); Magnesium 2.4 mg/dL (1.6-2.4); Potassium 3.5 mEq/L (3.5-5.1); Protein, Total 7.7 g/dL (6.4-8.2)
[2023-02-20] MEDS ORDERED: NA CHLORIDE 0.9% 1,000 ML ONE (22:41)
--- NOTE | 2023-02-21 00:18 | ER ---
Nurse's Notes [facility] Name: Donato Pascual Age: 62 yrs Sex: Male : 1960 Arrival Date: 02/20/2023 Time: 19:38 Bed 16 Private MD: Diagnosis: Syncope;Closed head injury;Neck pain;Orthostasis ;Dehydration;Heat Exposure Presentation: 02/20 20:32 Chief complaint: Patient states: i was standing talking to family and the next thing i ss now i woke up on the floor. i felt fine until we got in the car to come here but now im nauseous. spouse states there were outside BBQ 'ing all day and when he came inside he was hot but not sweating. PT came to talk to her and all of a sudden fell back, hit his head on a portable heater, shattered the base and began shaking. Coronavirus screen: Client denies travel out of the [place] in the last 14 days. At this time, the client does not indicate any symptoms associated with coronavirus-19. Ebola Screen: No symptoms or risks identified at this time. Initial Sepsis Screen: Does the patient meet any 2 criteria? No. Patient's initial sepsis screen is negative. Does the patient have a suspected source of infection? No. Patient's initial sepsis screen is negative. Risk Assessment: Do you want to hurt yourself or someone else? Patient reports no desire to harm self or others. Onset of symptoms was February 20, 2023. 20:32 Method Of Arrival: Ambulatory ss 20:32 Acuity: ROSHAN 3 ss Triage Assessment: 20:39 General: Appears in no apparent distress. uncomfortable, Behavior is calm, cooperative. ss Pain: Complains of pain in back of neck Pain does not radiate. Pain currently is 2 out of 10 on a pain scale. EENT: No deficits noted. No signs and/or symptoms were reported regarding the EENT system. Neuro: No deficits noted. Alanis Agitation-Sedation Scale (RASS): 0 - Alert and Calm Level of Consciousness is awake, alert, obeys commands, Oriented to person, place, time, situation. Cardiovascular: No deficits noted. Denies chest pain, shortness of breath, Capillary refill < 3 seconds Clubbing of nail beds is absent JVD is absent Patient's skin is warm and dry. Respiratory: No deficits noted. Airway is patent Respiratory effort is even, unlabored, Respiratory pattern is regular, symmetrical. GI: No deficits noted. No signs and/or symptoms were reported involving the gastrointestinal system. : No deficits noted. No signs and/or symptoms were reported regarding the genitourinary system. Derm: No deficits noted. No signs and/or symptoms reported regarding the dermatologic system. Skin is intact, is healthy with good turgor, Skin is dry, Skin is normal, Skin temperature is warm. Musculoskeletal: No deficits noted. Circulation, motion, and sensation intact. Range of motion: intact in all extremities. Historical: - Allergies: 20:39 NKA; ss - Home Meds: 20:39 Albuterol Inhl [Active]; Flomax 0.4 mg oral capsule daily [Active]; ss - PMHx: 20:39 Asthma; enlarged prostate; ss - PSHx: 20:39 right knee; abdominal hernia X4; ss - Immunization history:: Adult Immunizations up to date, Client reports having NOT received the Covid vaccine. - Social history:: Smoking status: Patient denies any tobacco usage or history of. Patient uses alcohol, occasionally. Screenin:28 [facility] ED Fall Risk Assessment (Adult) History of falling in the last 3 months, rv including since admission Yes- physiologic fall (2 pts) Confusion or Disorientation No (0 pts) Intoxicated or Sedated No (0 pts) Impaired Gait No (0 pts) Mobility Assist Device Used No (0 pt) Altered Elimination No (0 pt) Score/Fall Risk Level 0 - 2 = Low Risk Oriented to surroundings, Maintained a safe environment, Educated pt \T\ family on fall prevention, incl call for assistance when getting out of bed, Assessed \T\ reinforced patient's understanding of fall precautions, Provided non-skid footwear, Hourly rounding (assess needs \T\ fall precautionary measures) done, Used ambulatory aids as needed (educated on \T\ assisted with), Used gait belt as appropriate. Abuse screen: Denies threats or abuse. Denies injuries from another. Nutritional screening: No deficits noted. Tuberculosis screening: No symptoms or risk factors identified. Vital Signs: 20:32 BP 131 / 82; Pulse 97; Resp 18 S; Temp 97.8(O); Pulse Ox 98% on R/A; Weight 96.62 kg ss (R); Height 6 ft. 0 in. (R); 22:15 BP 116 / 73 Supine; Pulse 88; Resp 17; Pulse Ox 100% on R/A; rv 22:20 BP 108 / 71 Sitting; Pulse 91; Resp 18; Pulse Ox 100% on R/A; rv 22:27 BP 98 / 79; Pulse 109; Resp 18; Pulse Ox 100% on R/A; rv 23:09 BP 120 / 79; Pulse 85; Resp 19; Pulse Ox 99% on R/A; rv 02/21 00:00 BP 128 / 84 Supine; Pulse 81; Resp 18; Pulse Ox 98% on R/A; rv 00:05 BP 134 / 86 Sitting; Pulse 80; Resp 18; Pulse Ox 100% ; rv 00:10 BP 134 / 85 Standing; Pulse 93; Resp 18; Pulse Ox 99% on R/A; rv 02/20 20:32 Body Mass Index 28.89 (96.62 kg, 182.88 cm) ss ED Course: 02/20 20:01 Patient arrived in ED. jj6 20:03 Madelyn Wu MD is Attending Physician. sd2 20:39 Triage completed. ss 20:39 Arm band placed on right wrist. ss 21:00 CT Head C Spine In Process Unspecified. EDMS 22:00 Inserted saline lock: 20 gauge in left antecubital area, using aseptic technique. Blood rv collected. 22:18 Devan Small, LU is Primary Nurse. rv 22:29 Patient has correct armband on for positive identification. Placed in gown. Bed in low rv position. Call light in reach. Side rails up X2. Adult w/ patient. Client placed on continuous cardiac and pulse oximetry monitoring. NIBP monitoring applied. clinical research monitor on. 22:29 Provided Education on: ORTHOSTATIC HYPOTENSION. rv 22:29 No provider procedures requiring assistance completed. rv 02/21 01:02 IV discontinued, intact, bleeding controlled, No redness/swelling at site. Pressure rv dressing applied. Administered Medications: 02/20 22:44 Drug: NS 0.9% IV 1000 ml Route: IV; Rate: 1 bolus; Site: left antecubital; rv 02/21 01:02 Follow up: IV Status: Completed infusion; IV Intake: 1000ml rv Medication: 02/20 22:29 VIS not applicable for this client. rv Intake: 02/21 01:02 IV: 1000ml; Total: 1000ml. rv Outcome: 00:17 Discharge ordered by . janelle2 01:02 Discharged to home ambulatory, with family. rv 01:02 Condition: good 01:02 Discharge instructions given to patient, Instructed on discharge instructions, follow up and referral plans. medication usage, Demonstrated understanding of instructions, follow-up care, medications, Prescriptions given X 1. 01:03 Patient left the ED. rv Signatures: Dispatcher [employer] EDMS Destiny Gabriel, RN RN Devan Small RN RN rv Jeffries, Jennifer jj6 Dunlop, Stephanie, MD MD sd2
--- NOTE | 2023-02-21 00:18 | EDPHYS ---
Physician Documentation [facility] Name: Donato Pascual Age: 62 yrs Sex: Male : 1960 Arrival Date: 02/20/2023 Time: 19:38 Bed 16 Private MD: ED Physician Madelyn Wu HPI: 02/20 21:52 This 62 yrs old Black Male presents to ER via Ambulatory with complaints of Fall Injury.sd2 21:52 62-year-old male presents with chief complaint of fall injury. The patient and his sd2 friend at bedside report that the patient was outside barbecuing today in the heat and did have to come in at 1 point during the day feeling overheated and lay on the ground with the AC. He does not drink much water and drinks mostly Cokes. They state he was not sweating today while outside in the heat either. They state it was a couple of hours later that he had been inside and then walked up the stairs to give something to the friend when he appeared to have a syncopal episode. When he fell, he did hit his head and neck area on a portable heater that was in the room and then did have some jerking motions while on the ground. The patient reports some mild neck pain but denies any headache or other areas of pain. He denies feeling any preceding chest pain, shortness of breath, nausea or vomiting. He does not have any prior known cardiac issues and has never had any history of similar symptoms.. Historical: - Allergies: 20:39 NKA; ss - Home Meds: 20:39 Albuterol Inhl [Active]; Flomax 0.4 mg oral capsule daily [Active]; ss - PMHx: 20:39 Asthma; enlarged prostate; ss - PSHx: 20:39 right knee; abdominal hernia X4; ss - Immunization history:: Adult Immunizations up to date, Client reports having NOT received the Covid vaccine. - Social history:: Smoking status: Patient denies any tobacco usage or history of. Patient uses alcohol, occasionally. ROS: 21:52 Constitutional: Negative for fever, chills, and weight loss, Eyes: Negative for injury, sd2 pain, redness, and discharge, Neck: Positive for injury, pain, and negative for swelling, Cardiovascular: Negative for chest pain, palpitations, and edema, Respiratory: Negative for shortness of breath, cough, wheezing. Abdomen/GI: Negative for abdominal pain, nausea, vomiting, diarrhea. Back: Negative for injury and pain, MS/Extremity: Negative for injury and deformity, Skin: Negative for injury, rash, and discoloration, Neuro: Negative for headache, numbness and tingling. Positive for syncope. Exam: 21:52 Constitutional: This is a well developed, well nourished patient who is awake, alert, sd2 and in no acute distress. Head/Face: Normocephalic, atraumatic. Eyes: EOMI, normal conjunctiva bilaterally Neck: Trachea midline, no thyromegaly or masses palpated, and no cervical lymphadenopathy. Supple, full range of motion without nuchal rigidity, midline cervical vertebral point tenderness. C-collar applied in triage. Chest/axilla: Normal chest wall appearance and motion. Nontender with no deformity. Cardiovascular: Regular rate and rhythm with a normal S1 and S2. No gallops, murmurs, or rubs. 2+ distal pulses. Respiratory: Lungs have equal breath sounds bilaterally, clear to auscultation and percussion. No rales, rhonchi or wheezes noted. No increased work of breathing, no retractions or nasal flaring. Abdomen/GI: Soft, non-tender, with normal bowel sounds. No guarding or rebound. No evidence of tenderness throughout. Back: No spinal tenderness. No costovertebral tenderness. Full range of motion. Skin: Warm, dry with normal turgor. Normal color with no rashes, no lesions, and no evidence of cellulitis. MS/ Extremity: Pulses equal, no cyanosis. Neurovascular intact. Full, normal range of motion. Ambulatory without difficulty. Neuro: Awake and alert, GCS 15, oriented to person, place, time, and situation. Cranial nerves II-XII grossly intact. Motor strength 5/5 in all extremities. Sensory grossly intact. Cerebellar exam normal. Psych: Awake, alert, with orientation to person, place and time. Behavior, mood, and affect are within normal limits. 21:52 ECG was reviewed by the Attending Physician. NSR, rate 92, no STEMI criteria, wandering baseline in V4 and V5 Vital Signs: 20:32 BP 131 / 82; Pulse 97; Resp 18 S; Temp 97.8(O); Pulse Ox 98% on R/A; Weight 96.62 kg ss (R); Height 6 ft. 0 in. (R); 22:15 BP 116 / 73 Supine; Pulse 88; Resp 17; Pulse Ox 100% on R/A; rv 22:20 BP 108 / 71 Sitting; Pulse 91; Resp 18; Pulse Ox 100% on R/A; rv 22:27 BP 98 / 79; Pulse 109; Resp 18; Pulse Ox 100% on R/A; rv 23:09 BP 120 / 79; Pulse 85; Resp 19; Pulse Ox 99% on R/A; rv 02/21 00:00 BP 128 / 84 Supine; Pulse 81; Resp 18; Pulse Ox 98% on R/A; rv 00:05 BP 134 / 86 Sitting; Pulse 80; Resp 18; Pulse Ox 100% ; rv 00:10 BP 134 / 85 Standing; Pulse 93; Resp 18; Pulse Ox 99% on R/A; rv 02/20 20:32 Body Mass Index 28.89 (96.62 kg, 182.88 cm) ss MDM: 02/20 20:54 Patient medically screened. sd2 21:52 Differential diagnosis: Differential diagnosis includes but is not limited to: sd2 Vasovagal, cardiogenic, arrhythmia, anemia, electrolyte abnormality, ACS, orthostasis, dehydration among others. Data reviewed: vital signs, nurses notes, lab test result(s), EKG, radiologic studies. Historians other than the Patient: Friend: Provides report of what occurred as the patient does not recall. 02/21 00:15 I considered the following discharge prescriptions or medication management in the sd2 emergency department Medications were administered in the Emergency Department. See MAR. Care significantly affected by the following chronic conditions: Asthma. Counseling: I had a detailed discussion with the patient and/or guardian regarding: the historical points, exam findings, and any diagnostic results supporting the discharge/admit diagnosis, lab results, the need for outpatient follow up, to return to the emergency department if symptoms worsen or persist or if there are any questions or concerns that arise at home. ED course: Labs reviewed with no significant findings. VS orthostatic and improved after IVFs. Pt asymptomatic and ready to be discharged home. Advised follow up with PCP and increased hydration at home as well as decreased heat exposure. He verbalizes understanding of discharge plan and strict return precautions. Requests albuterol inhaler refill which was given today. . 02/20 20:46 Order name: CBC with Diff; Complete Time: 22:29 sd2 02/20 20:46 Order name: CMP; Complete Time: 22:29 sd02/20 20:46 Order name: Magnesium; Complete Time: 22:29 sd2 02/20 20:46 Order name: Troponin High Sensitivity; Complete Time: 22:29 sd2 02/20 20:46 Order name: CK; Complete Time: 22:29 sd2 02/20 20:46 Order name: CT Head C Spine; Complete Time: 21:12 sd2 02/20 20:46 Order name: EKG - Nurse/Tech; Complete Time: 21:25 sd2 02/20 20:46 Order name: Orthostatics; Complete Time: 22:26 sd2 Administered Medications: 02/20 22:44 Drug: NS 0.9% IV 1000 ml Route: IV; Rate: 1 bolus; Site: left antecubital; rv 02/21 01:02 Follow up: IV Status: Completed infusion; IV Intake: 1000ml rv Disposition Summary: 02/21/23 00:17 Discharge Ordered Location: Home sd2 Problem: new sd2 Symptoms: have improved sd2 Condition: Stable sd2 Diagnosis - Syncope sd2 - Closed head injury sd2 - Neck pain sd2 - Orthostasis sd2 - Dehydration sd2 - Heat Exposure sd2 Followup: sd2 - With: Private Physician - When: 2 - 3 days - Reason: Recheck today's complaints, Continuance of care, Re-evaluation by your physician Discharge Instructions: - Discharge Summary Sheet sd2 - Dehydration, Adult sd2 - Head Injury, Adult sd2 - Syncope sd2 - Heat Exhaustion sd2 Forms: - Medication Reconciliation Form sd2 - Thank You Letter sd2 - Antibiotic Education sd2 - Prescription Opioid Use sd2 - Patient Portal Instructions sd2 Prescriptions: - albuterol sulfate 90 mcg/actuation Inhalation HFA Aerosol Inhaler - inhale 2 puff by INHALATION route every 4 to 6 hours As needed as needed for sd2 bronchospasm; administer via ventilator; 1 Kit; Refills: 0, Product Selection Permitted Signatures: Dispatcher [employer] Destiny Long RN RN ss Devan Small RN RN rv Dunlop, Stephanie, MD MD sd2
[2023-02-21 02:12] VITALS: TEMP 97.8
[2023-02-21 02:25] VITALS: BP 134/85; O2SAT 99
--- NOTE | 2023-02-23 15:42 | EKG ---
Test Date: 2023-02-20 Test Time: 21:12:33 Coating Machine Helper: PENELOPE MEASUREMENT RESULTS: Intervals: Rate: 92 IA: 200 QRSD: 90 QT: 336 QTc: 415 [place]: P: 76 IA: 200 QRS: 71 T: 62 INTERPRETIVE STATEMENTS: Normal sinus rhythm Normal ECG Compared to ECG 03/23/2019 11:59:19 Atrial premature complex(es) no longer present Electronically Signed On 02-23-23 15:41:40 CDT by Joel Alcala
== END 2023-02-21 01:03 | disposition home or self-care (01) ==
LOC: ER 19:38
DX: I95.1 Orthostatic hypotension (principal); S09.8XXA Other specified injuries of head, initial encounter; E86.0 Dehydration; T67.5XXA Heat exhaustion, unspecified, initial encounter; M54.2 Cervicalgia
CPT/HCPCS: 96361; 93005; 85025; 36415; 83735; 82550; 84484; 80053; 70450; 72125; 96360; 99285; J7030